=== PATIENT | male | born 1960 | race African-American/Black ===

== ENCOUNTER 2016-07-02 15:54 | Emergency (ER) | payer OTHER ==
--- NOTE | 2016-07-02 16:11 | PDOC ---
Rapid Medical Evaluation Time Seen by Provider: 07/02/16 16:10 Medical Evaluation: Allergies Allergy/AdvReac Type Severity Reaction Status Date / Time No Known Allergies Allergy Verified 06/30/16 13:23 07/02/16 16:10 I have performed a brief in-person evaluation of this patient. I am not entirely clear on this patient's chief complaint today. He was recently seen in the ER where work up revealed that patient has a hernia. He was asked to see dr Eid in the office on Thursday (today) at another office (not at [facility]) He instead come to the ER to discuss with the surgeon what will be done in the surgery Pt denies pain at this time, states the hernia enlarges and typically is easily reducible He is tolerating po, no vomiting Passing stool Passing flatus On examination: Speech difficulty to understand Right eye corneal changes Abd soft, non distended Unable to disrobe pt for testicular exam in triage I will not order a work up at this time Will defer to assessment by ER staff.... The patient will proceed to the ED for further evaluation. 07/02/16 16:12 07/02/16 16:18 07/02/16 17:02
[2016-07-02 16:19] VITALS: BP 152/69; PULSE 82; BMI 20.3
--- NOTE | 2016-07-02 16:39 | PDOC ---
History of Present Illness - General Chief Complaint: Pain, Acute Stated Complaint: PRE-OP Time Seen by Provider: 07/02/16 16:10 History Source: Patient Exam Limitations: No Limitations - History of Present Illness Initial Comments: 07/02/16 17:55 56-year-old male with history of right inguinal hernia, hypertension, smoking and EtOH abuse, presents to the ER requesting to discuss hernia surgery with a surgeon. Patient has recently been diagnosed with an easily reducible right inguinal hernia the communicates with the scrotum and was referred to surgery as an outpatient but misunderstood his instructions and has return to the ER. Patient denies pain, nausea, vomiting. Patient denies any exacerbation of his baseline symptoms. REVIEW OF SYSTEMS CONSTITUTIONAL: No fever, no chills, no fatigue EYES: Right eye blindness ENT: No ear pain, no sore throat CARDIOVASCULAR: No chest pain, no palpitations RESPIRATORY: No cough, no SOB GI: No abdominal pain, + right inguinal hernia no nausea, no vomiting, no constipation, no diarrhea GENITOURINARY: No dysuria, no frequency, no hematuria MUSKULOSKELETAL: No backpain, no joint pain, no myalgias SKIN: No rash NEURO: No headache EXAMINATION CONSTITUTIONAL: Awake and alert; in no apparent distress HEAD: Normocephalic; atraumatic EYES: Right cornea is opacified and I'm unable to visualize the pupil. Left cornea is clear, pupil is round and reactive to light; ENMT: External appears normal; normal oropharynx NECK: Supple; non-tender; no cervical lymphadenopathy CARD: Normal S1, S2; no murmurs, rubs, or gallops RESP: Normal chest excursion with respiration; breath sounds clear and equal bilaterally; no wheezes, rhonchi, or rales ABD: Soft, non-distended; non-tender; large right inguinal hernia the communicates with the scrotum, soft, reducible, with auscultated bowel sounds. There is no guarding or rebound; EXT: Normal ROM in all four extremities; non-tender to palpation; distal pulses intact SKIN: Warm, dry, no rash NEURO: No focal neurological deficiencies. Past History - Past Medical History Allergies/Adverse Reactions: Allergies Allergy/AdvReac Type Severity Reaction Status Date / Time No Known Allergies Allergy Verified 07/02/16 16:19 Home Medications: Ambulatory Orders Benztropine Mesylate [Cogentin -] 0.5 mg PO BID #60 tablet 04/07/16 Buspirone HCl [Buspar -] 10 mg PO BID #60 tablet 04/07/16 Thiothixene [Navane] 5 mg PO BID #60 capsule 04/07/16 Anemia: No Asthma: No Cancer: No Cardiac Disorders: No CVA: No COPD: No CHF: No Dementia: No Diabetes: No GI Disorders: No Disorders: No HTN: Yes (no meds) Hypercholesterolemia: No Kidney Stones: No Liver Disease: No Psychiatric Problems: Yes Suicide Attempt (Hx): Yes (20 years ago) Seizures: No Thyroid Disease: No - Surgical History Abdominal Surgery: No Appendectomy: No Cardiac Surgery: No Cholecystectomy: No Lung Surgery: No Neurologic Surgery: No Orthopedic Surgery: No - Reproductive History Testicular Surgery: No - Psycho/Social/Smoking Cessation Hx Anxiety: Yes Suicidal Ideation: No Smoking History: Current every day smoker Have you smoked in the past 12 months: Yes Number of Cigarettes Smoked Daily: 7 Information on smoking cessation initiated: No 'Breaking Loose' booklet given: 04/16/16 Hx Alcohol Use: No Drug/Substance Use Hx: No Substance Use Type: Alcohol, Marijuana Hx Substance Use Treatment: Yes (detox) Abd/GI Specific PMHX - Complaint Specific PMHX Hepatitis: No Pancreatitis: No *Physical Exam - Vital Signs Last Vital Signs Temp Pulse Resp BP Pulse Ox 82 16 152/69 98 07/02/16 16:10 07/02/16 16:10 07/02/16 16:10 07/02/16 16:10 Medical Decision Making - Medical Decision Making 07/02/16 17:58 Patient is a 56-year-old male with long-standing right inguinal hernia without evidence of incarceration or strangulation. Patient referred to the outpatient surgeon and advised to follow-up. Patient also advised of reasons to return to the ER immediately and has expressed understanding. *DC/Admit/Observation/Transfer Diagnosis at time of Disposition: Right groin hernia - Discharge Dispostion Disposition: HOME Condition at time of disposition: Stable - Referrals Referrals: Miguel Eid MD [Staff Physician] - - Patient Instructions Printed Discharge Instructions: DI for Groin Hernia Additional Instructions: you have a hernia that needs to be evaluated by surgery. call and make and appointment to be seen at the office. return immidiately to ED for severe pain , vomiting, fever
== END 2016-07-02 17:20 | disposition home or self-care (01) ==
LOC: JER 15:54
DX: Z04.8 Encounter for examination and observation for other specified reasons (principal); K40.90 Unilateral inguinal hernia, without obstruction or gangrene, not specified as recurrent; I10 Essential (primary) hypertension; F17.210 Nicotine dependence, cigarettes, uncomplicated; F10.10 Alcohol abuse, uncomplicated
CPT/HCPCS: 99282-25

== ENCOUNTER 2018-07-03 17:32 | Inpatient (IN) | payer OTHER ==
--- NOTE | 2018-07-03 18:06 | HP ---
CIWA Score Nausea/Vomitin Muscle Tremors: 2 Anxiety: 2 Agitation: 2 Paroxysmal Sweats: 1-Minimal Palms Moist Orientation: 0-Oriented Tacttile Disturbances: 1-Very Mild Itch/Numbness Auditory Disturbances: 1-Very Mild Visual Disturbances: 0-None Headache: 2-Mild CIWA-Ar Total Score: 13 - Admission Criteria OASAS Guidelines: Admission for Medically Managed Detox: Requires at least one of the followin. CIWA greater than 12 2. Seizures within the past 24 hours 3. Delirium tremens within the past 24 hours 4. Hallucinations within the past 24 hours 5. Acute intervention needed for co occurring medical disorder 6. Acute intervention needed for co occurring psychiatric disorder 7. Severe withdrawal that cannot be handled at a lower level of care (continued vomiting, continued diarrhea, abnormal vital signs) requiring intravenous medication and/or fluids 8. Patient presents the following: CIWA greater than 12 Admission Criteria Met: Admission criteria met Admission ROS [facility] - HPI Chief Complaint: i need help help to stop drinking alcohol and cocaine Allergies/Adverse Reactions: Allergies Allergy/AdvReac Type Severity Reaction Status Date / Time No Known Allergies Allergy Verified 07/03/18 18:15 History of Present Illness: this 58 years old male with alcohol and coaine dependence,seeking detox, withdrawal symptom, had previous admissions in detox,last admission in [facility] 03/1716 to 04/09/16 history of hypertension ,non compliance seen in [facility] last night history of schizophrenia syncope longest period of sobriety 10 years blindness of right eye post trauma in 1969 right inguinal hernia repair 2018 plan for rehab after detox Exam Limitations: No Limitations - Ebola screening Have you traveled outside of the country in the last 21 days: No - Review of Systems Constitutional: Loss of Appetite, Malaise, Night Sweats, Changes in sleep, Weakness EENT: reports: Nose Congestion, Other (blindness of right eye post trauma since 1969) Respiratory: reports: No Symptoms reported Cardiac: reports: No Symptoms Reported GI: reports: Poor Appetite, Vomiting, Abdominal cramping : reports: No Symptoms Reported Musculoskeletal: reports: Back Pain, Muscle Pain Integumentary: reports: Dryness Neuro: reports: Headache, Tremors Endocrine: reports: No Symptoms Reported Hematology: reports: No Symptoms Reported Psychiatric: reports: No Sypmtoms Reported, Judgement Intact, Mood/Affect Appropiate, Orientated x3, other (schizophrenia) Patient History - Patient Medical History Hx Anemia: No Hx Asthma: No Hx Chronic Obstructive Pulmonary Disease (COPD): No Hx Cancer: No Hx Cardiac Disorders: No Hx Congestive Heart Failure: No Hx Hypertension: Yes (no meds) Hx Hypercholesterolemia: No Hx Pacemaker: No HX Cerebrovascular Accident: No Hx Seizures: No Hx Dementia: No Hx Diabetes: No Hx Gastrointestinal Disorders: No Hx Liver Disease: No Hx Genitourinary Disorders: No Hx Sexually Transmitted Disorders: No Hx Renal Disease (ESRD): No Hx Thyroid Disease: No Hx Human Immunodeficiency Virus (HIV): No (last negative in 2008) Hx Hepatitis C: No Hx Depression: Yes Hx Suicide Attempt: Yes (20 years ago overdose) Hx Bipolar Disorder: No Hx Schizophrenia: Yes (on meds) Other Medical History: no suicidal,no homicidal - Patient Surgical History Past Surgical History: No Hx Neurologic Surgery: No Hx Cataract Extraction: No Hx Cardiac Surgery: No Hx Lung Surgery: No Hx Breast Surgery: No Hx Breast Biopsy: No Hx Abdominal Surgery: Yes (right inguinal hernia in 2018) Hx Appendectomy: No Hx Cholecystectomy: No Hx Genitourinary Surgery: No Hx Section: No Hx Orthopedic Surgery: No Anesthesia Reaction: No - PPD History Previous Implant?: Yes Documented Results: Negative w/o proof Implanted On Prior [facility] Admission?: Yes Date: 10/12/15 Results: 0 mm PPD to be Administered?: Yes - Smoking Cessation Smoking history: Current every day smoker Have you smoked in the past 12 months: Yes Aproximately how many cigarettes per day: 7 Hx Chewing Tobacco Use: No Initiated information on smoking cessation: Yes 'Breaking Loose' booklet given: 07/03/18 - Substance & Tx. History Hx Alcohol Use: Yes Hx Substance Use: Yes Substance Use Type: Alcohol, Cocaine Hx Substance Use Treatment: Yes ([facility] 04/05/16 to 03/21/16) - Substances Abused Alcohol Route: Oral Frequency: Daily Amount used: 4 BEERS . 1 PINT VODKA Age of first use: 54 Date of Last Use: 07/03/18 Cocaine Route: Smoking Frequency: Daily Amount used: 3 GRAMS Age of first use: 30 Date of Last Use: 07/03/18 Family Disease History - Family Disease History Family Disease History: CA: Father ( - stroke), Other: Father, Mother ( 'bone disease") Admission Physical Exam [facility] - Vital Signs Vital Signs: Vital Signs Temperature 98.6 F 07/03/18 17:59 Pulse Rate 74 07/03/18 17:59 Respiratory Rate 18 07/03/18 17:59 Blood Pressure 162/113 H 07/03/18 17:59 O2 Sat by Pulse Oximetry (%) - Physical General Appearance: Yes: Moderate Distress, Tremorous, Irritable, Sweating, Anxious HEENTM: Yes: Other (blindness of right eye post trauma since 1969) Respiratory: Yes: Lungs Clear, Normal Breath Sounds, No Respiratory Distress Neck: Yes: Within Normal Limits, Supple, Trachea in good position Breast: Yes: Within Normal Limits Cardiology: Yes: Within Normal Limits, Regular Rhythm, Regular Rate, S1, S2 Abdominal: Yes: Within Normal Limits, Normal Bowel Sounds, Non Tender, Flat, Soft, Surgical Scar Genitourinary: Yes: Within Normal Limits Musculoskeletal: Yes: Back pain, Muscle Pain Extremities: Yes: Tremors Neurological: Yes: deputy head II-XII NML intact, Fully Oriented, Alert, Motor Strength 5/5 Integumentary: Yes: Dry Lymphatic: Yes: Within Normal Limits - Diagnostic (1) Alcohol dependence with uncomplicated withdrawal Current Visit: No Status: Acute (2) Nicotine dependence Current Visit: No Status: Acute Qualifiers: Nicotine product type: cigarettes Substance use status: uncomplicated Qualified Code(s): F17.210 - Nicotine dependence, cigarettes, uncomplicated (3) Schizophrenia Current Visit: No Status: Suspected (4) Cocaine abuse Current Visit: Yes Status: Acute (5) Syncope Current Visit: Yes Status: Acute (6) Blindness of right eye Current Visit: Yes Status: Acute (7) History of right inguinal hernia repair Current Visit: Yes Status: Acute (8) History of drug overdose Current Visit: Yes Status: Acute Cleared for Admission [facility] - Detox or Rehab [facility] Level of Care: Medically Managed Detox Regimen/Protocol: Librium S Breath Alcohol Content Breath Alcohol Content: 0 Inpatient Rehab Admission - Rehab Decision to Admit Inpatient rehab admission?: No
[2018-07-03 18:13] VITALS: BMI 21.7
[2018-07-03] MEDS ORDERED: MAGNESIUM CITRATE 300 ML BOTTLE PO PRN (18:30)
[2018-07-03] MEDS ORDERED: IBUPROFEN 400 MG TABLET (FP) PO PRN (18:30)
[2018-07-03] MEDS ORDERED: BISMUTH SUBSALICYLATE 524 MG/30 ML UD PO PRN (18:30)
[2018-07-03] MEDS ORDERED: chlordiazePOXIDE HCL 25 MG CAPSULE PO PRN (18:30)
[2018-07-03] MEDS ORDERED: hydrOXYzine PAMOATE 25 MG CAPSULE (FP) PO PRN (18:30)
[2018-07-03] MEDS ORDERED: MENTHOL/PHENOL 1 EACH UD MM PRN (18:30)
[2018-07-03] MEDS ORDERED: METHOCARBAMOL 500 MG TABLET PO PRN (18:30)
[2018-07-03] MEDS ORDERED: MAG HYDROX/AL HYDROX/SIMETH 30 ML UNIT-DOSE CUP PO PRN (18:30)
[2018-07-03] MEDS ORDERED: MELATONIN 5 MG TABLETS PO PRN (18:30)
[2018-07-03] MEDS ORDERED: ACETAMINOPHEN 325 MG TABLET (FP) PO PRN ×2 (18:30)
[2018-07-03] MEDS ORDERED: MAGNESIUM HYDROX 2400MG/30ML ORAL SUSPENSION 30 ML CUP PO PRN (18:30)
[2018-07-03] MEDS ORDERED: cloNIDine HCL 0.1 MG TABLET PO ONE (19:00)
[2018-07-03] MEDS: amLODIPine BESYLATE 10 MG TABLET (FP) PO SCH (21:31)
[2018-07-03] MEDS: HYDROCHLOROTHIAZIDE 25 MG TABLET (FP) PO SCH (21:31)
[2018-07-03] MEDS: chlordiazePOXIDE HCL 25 MG CAPSULE PO SCH (22:34)
[2018-07-03] MEDS: THIAMINE HCL 100 MG TABLET (FP) PO SCH (22:55)
[2018-07-04] MEDS: chlordiazePOXIDE HCL 25 MG CAPSULE PO SCH ×4 (06:28→22:18)
[2018-07-04] MEDS: PRENATAL VITAMINS W/ FOLIC ACID TABLET (FP) PO SCH (10:22)
[2018-07-04] MEDS: HYDROCHLOROTHIAZIDE 25 MG TABLET (FP) PO SCH (10:23)
[2018-07-04] MEDS: amLODIPine BESYLATE 10 MG TABLET (FP) PO SCH (10:23)
[2018-07-04 11:10] LABS: ALBUMIN 3.5 g/dl (3.4-5.0); ALK PHOS 79 U/L (45-117); ANION GAP 4 MMOL/L (8-16); BILIRUBIN,TOTAL 0.4 mg/dL (0.2-1); BLOOD UREA NITROGEN 17 mg/dL (7-18); CALCIUM 8.2 mg/dL (8.5-10.1); CHLORIDE 104 mmol/L (98-107); CO2 31 mmol/L (21-32); CREATININE 1.2 mg/dL (0.55-1.3); GLUCOSE,RANDOM 116 mg/dL (74-106); SGOT/AST 25 U/L (15-37); SGPT/ALT 30 U/L (13-61); SODIUM 139 mmol/L (136-145); TOT PROT 6.3 g/dl (6.4-8.2)
[2018-07-04 11:16] LABS: HEMATOCRIT 36.3 % (35.4-49); HEMOGLOBIN 11.9 GM/dL (11.7-16.9); MCH 25.5 pg (25.7-33.7); MCHC 32.7 g/dl (32.0-35.9); MEAN PLT VOLUME 7.6 fl (7.5-11.1); PLATELET COUNT 205 K/MM3 (134-434); RBC 4.66 M/mm3 (4.00-5.60); RDW 14.7 % (11.9-15.9); WHITE BLOOD COUNT 2.9 K/mm3 (4.0-10.0)
--- NOTE | 2018-07-04 14:15 | PN ---
S CIWA - CIWA Score Nausea/Vomitin Muscle Tremors: 2 Anxiety: 2 Agitation: 1-Slight > Activity Paroxysmal Sweats: 2 Orientation: 0-Oriented Tacttile Disturbances: 1-Very Mild Itch/Numbness Auditory Disturbances: 0-None Visual Disturbances: 0-None Headache: 1-Very Mild CIWA-Ar Total Score: 12 S Progress Note (SOAP) Subjective: interrupted sleep, anxiety, chills sweats Objective: 07/04/18 14:13 Vital Signs Temperature 97.5 F L 07/04/18 13:47 Pulse Rate 88 07/04/18 13:47 Respiratory Rate 16 07/04/18 13:47 Blood Pressure 125/78 07/04/18 13:47 O2 Sat by Pulse Oximetry (%) Laboratory Last Values WBC 2.9 K/mm3 (4.0-10.0) L 07/04/18 07:35 RBC 4.66 M/mm3 (4.00-5.60) 07/04/18 07:35 Hgb 11.9 GM/dL (11.7-16.9) 07/04/18 07:35 Hct 36.3 % (35.4-49) 07/04/18 07:35 MCV 78.0 fl (80-96) L 07/04/18 07:35 MCH 25.5 pg (25.7-33.7) L 07/04/18 07:35 MCHC 32.7 g/dl (32.0-35.9) 07/04/18 07:35 RDW 14.7 % (11.9-15.9) D 07/04/18 07:35 Plt Count 205 K/MM3 (134-434) D 07/04/18 07:35 MPV 7.6 fl (7.5-11.1) 07/04/18 07:35 Sodium 139 mmol/L (136-145) 07/04/18 07:35 Potassium 4.0 mmol/L (3.5-5.1) 07/04/18 07:35 Chloride 104 mmol/L (98-107) 07/04/18 07:35 Carbon Dioxide 31 mmol/L (21-32) 07/04/18 07:35 Anion Gap 4 MMOL/L (8-16) L 07/04/18 07:35 BUN 17 mg/dL (7-18) 07/04/18 07:35 Creatinine 1.2 mg/dL (0.55-1.3) 07/04/18 07:35 Creat Clearance w eGFR 62.19 (>60) 07/04/18 07:35 Random Glucose 116 mg/dL (74-106) H 07/04/18 07:35 Calcium 8.2 mg/dL (8.5-10.1) L 07/04/18 07:35 Total Bilirubin 0.4 mg/dL (0.2-1) 07/04/18 07:35 AST 25 U/L (15-37) 07/04/18 07:35 ALT 30 U/L (13-61) 07/04/18 07:35 Alkaline Phosphatase 79 U/L (45-117) 07/04/18 07:35 Total Protein 6.3 g/dl (6.4-8.2) L 07/04/18 07:35 Albumin 3.5 g/dl (3.4-5.0) 07/04/18 07:35 RPR Titer Nonreactive (NONREACTIVE) 07/04/18 07:35 labs noted Assessment: 07/04/18 14:13 aox3 x no distress slurred speech ( patinet reports is normal present for 20+ years from "old" psych meds) full ROM ambulating in the unit Plan: withdrawal sx increase po fluids continue to monitor
[2018-07-04] MEDS: THIAMINE HCL 100 MG TABLET (FP) PO SCH (22:18)
[2018-07-05] MEDS: chlordiazePOXIDE HCL 25 MG CAPSULE PO SCH ×3 (05:33→18:23)
--- NOTE | 2018-07-05 09:32 | CONSULT ---
[facility] Psychiatric Consult - Data Date of interview: 07/05/18 Admission source: [facility] Identifying data: Mr العلي is a 58 years old single Black male, unemployed receiving SSI/SSD, domiciled seeking detox treatment for alcohol and cocaine. Substance Abuse History: Reports history of alcohol and cocaine use. He started drinking alcohol at age 54, consumes one pint of vodka & 4 cans of beer daily. Last drank on 07/03/18. He started smking crack cocaine at age 30, consumes 3 grams daily. Last smoked on 07/03/18. Refer to medical reception specialist's summary for further information Medical History: Significant for hypertension, arthritis right leg, blindness right eye and history of surgery for right inguinal hernia repair. Smokes 7 cigartees daily Psychiatric History: Patient reports that his first psychiatric contact was 30 years ago when he was admitted to [facility] for auditory hallucinations, depression and suicidal attempt by overdose on pills. He was diagnosed with Schizophrenia/depression and started on psychotropic medications. Repors that from [facility], he was transferred to [facility] for skilled nursing care. Reports multiple subsequent psychiatric admissions to various institutions including to [facility], [facility], [facility] in [place], [place] and most recently in April 2018 to [facility]. He was discharged on Zyprexa 15 mg po HS, Cogentin 1 mg po BID and Buspar 5 mg po BID(verified by external medication search with scripts filled on 05/17/18). Prior to that recent admission, he saw Dr Sebas Kauffman, a private psychiatrist on [address] in the [place] and he was prescribed Navane 10 mg po BID, Cogentin 2 mg po daily and Buspar 15 mg po BID(verified by external medication search with scripts filled on 04/24/18). Admits that he did not follow up after discharge from [facility] and ran out of medication. Report two previous suicidal attempts(overdose 30 years ago and hanging 2 years after). At present, denies experiencing psychotic , manic or depressive symptoms, S/H ideations Physical/Sexual Abuse/Trauma History: Denies history of emotional, physical or sexual abuse as well as DV relationship. No service Additional Comment: Reports history of multiple arrests including 2 felony convictions. Denies being on parole/probation at present Mental Status Exam - Mental Status Exam Alert and Oriented to: Time, Place Cognitive Function: Fair Patient Appearance: Disheveled Mood: Hopeful, Euthymic Patient Behavior: Cooperative Speech Pattern: Clear Voice Loudness: Normal Thought Process: Intact, Goal Oriented Thought Disorder: Not Present Hallucinations: Denies Suicidal Ideation: Denies Insight/Judgement: Fair Sleep: Poorly Appetite: Good Muscle strength/Tone: Normal Gait/Station: Normal Psychiatric Findings - Problem List ([place] 1, 2,3) (1) Schizophrenia Current Visit: No Status: Chronic (2) Schizoaffective disorder Current Visit: Yes Status: Ruled-out (3) Alcohol dependence with uncomplicated withdrawal Current Visit: No Status: Acute (4) Cocaine dependence Current Visit: Yes Status: Acute (5) Nicotine dependence Current Visit: No Status: Acute Qualifiers: Nicotine product type: cigarettes Substance use status: uncomplicated Qualified Code(s): F17.210 - Nicotine dependence, cigarettes, uncomplicated (6) Blindness of right eye Current Visit: Yes Status: Chronic (7) History of right inguinal hernia repair Current Visit: Yes Status: Resolved (8) HTN (hypertension) Current Visit: Yes Status: Chronic (9) Arthritis of right leg Current Visit: Yes Status: Chronic - Initial Treatment Plan Initial Treatment Plan: 1) Resume Zyprexa 15 mg po HS and Buspar 5 mg po BID. 2 ) Start Cogentin 0.5 mg po BID. 3) Continue inpatient detoxification
[2018-07-05] MEDS: PRENATAL VITAMINS W/ FOLIC ACID TABLET (FP) PO SCH (11:11)
[2018-07-05] MEDS: BENZTROPINE MESYLATE 1 MG TABLET (FP) PO SCH ×2 (11:12→21:34)
--- NOTE | 2018-07-05 11:22 | PN ---
[facility] CIWA - CIWA Score Nausea/Vomitin-No Nausea/No Vomiting Muscle Tremors: 3 Anxiety: 2 Agitation: 3 Paroxysmal Sweats: 3 Orientation: 0-Oriented Tacttile Disturbances: 0-None Auditory Disturbances: 0-None Visual Disturbances: 0-None Headache: 0-None Present CIWA-Ar Total Score: 11 S Progress Note (SOAP) Subjective: sweats interrupted sleep body aches chills Objective: 07/05/18 11:22 Vital Signs Temperature 96.3 F L 07/05/18 09:27 Pulse Rate 70 07/05/18 09:27 Respiratory Rate 16 07/05/18 09:27 Blood Pressure 142/96 07/05/18 09:27 O2 Sat by Pulse Oximetry (%) Laboratory Tests 07/04/18 07/04/18 07/04/18 07:35 07:35 07:35 WBC 2.9 L RBC 4.66 Hgb 11.9 Hct 36.3 MCV 78.0 L MCH 25.5 L MCHC 32.7 RDW 14.7 D Plt Count 205 D MPV 7.6 Sodium 139 Potassium 4.0 Chloride 104 Carbon Dioxide 31 Anion Gap 4 L BUN 17 Creatinine 1.2 Creat Clearance w eGFR 62.19 Random Glucose 116 H Calcium 8.2 L Total Bilirubin 0.4 AST 25 ALT 30 Alkaline Phosphatase 79 Total Protein 6.3 L Albumin 3.5 RPR Titer Nonreactive aaox3 ambulating no acute distress Assessment: 07/05/18 11:22 withdrawal sx Plan: continue detox increase fluids
[2018-07-05] MEDS: busPIRone HCL 5 MG TABLET PO SCH ×2 (11:30→21:33)
[2018-07-05] MEDS: amLODIPine BESYLATE 10 MG TABLET (FP) PO SCH (11:30)
[2018-07-05] MEDS: HYDROCHLOROTHIAZIDE 25 MG TABLET (FP) PO SCH (11:30)
[2018-07-05] MEDS: OLANZapine 7.5 MG TABLET PO SCH (21:33)
[2018-07-05] MEDS: THIAMINE HCL 100 MG TABLET (FP) PO SCH (21:35)
[2018-07-05] MEDS: chlordiazePOXIDE HCL 10 MG CAPSULE PO SCH (22:39)
[2018-07-05] MEDS ORDERED: chlordiazePOXIDE HCL 10 MG CAPSULE PO PRN (23:00)
[2018-07-06] MEDS: chlordiazePOXIDE HCL 10 MG CAPSULE PO SCH ×3 (06:04→17:49)
[2018-07-06] MEDS: BENZTROPINE MESYLATE 1 MG TABLET (FP) PO SCH ×2 (10:26→22:27)
[2018-07-06] MEDS: busPIRone HCL 5 MG TABLET PO SCH ×2 (10:26→22:28)
[2018-07-06] MEDS: PRENATAL VITAMINS W/ FOLIC ACID TABLET (FP) PO SCH (10:26)
[2018-07-06] MEDS: amLODIPine BESYLATE 10 MG TABLET (FP) PO SCH (10:27)
[2018-07-06] MEDS: HYDROCHLOROTHIAZIDE 25 MG TABLET (FP) PO SCH (10:27)
--- NOTE | 2018-07-06 11:59 | PN ---
[facility] Progress Note (SOAP) Subjective: mild sweats tired Objective: 07/06/18 11:57 Vital Signs Temperature 97.3 F L 07/06/18 09:40 Pulse Rate 87 07/06/18 09:40 Respiratory Rate 18 07/06/18 09:40 Blood Pressure 99/70 07/06/18 09:40 O2 Sat by Pulse Oximetry (%) aaox3 ambulating no acute distress continue to monitor BP Assessment: 07/06/18 11:58 mild withdrawal sx Plan: continue detox increase fluids monitor BP
[2018-07-06] MEDS: OLANZapine 7.5 MG TABLET PO SCH (22:27)
[2018-07-06] MEDS: THIAMINE HCL 100 MG TABLET (FP) PO SCH (22:27)
[2018-07-06] MEDS ORDERED: chlordiazePOXIDE HCL 10 MG CAPSULE PO SCH (23:00)
--- NOTE | 2018-07-07 09:43 | DS ---
[facility] Detox Discharge Summary Admission Date: 07/03/18 Discharge Date: 07/07/18 - History Present History: Alcohol Dependence, Cocaine Dependence, Pcp Dependence - Physical Exam Results Vital Signs: Vital Signs Temperature 96.8 F L 07/07/18 09:03 Pulse Rate 85 07/07/18 09:03 Respiratory Rate 20 07/07/18 09:03 Blood Pressure 141/112 H 07/07/18 09:03 O2 Sat by Pulse Oximetry (%) - Treatment Hospital Course: Detox Protocol Followed, Detoxed Safely, Responded well, Discharged Condition Good, Rehab Referral Accepted - Medication Discharge Medications: Ambulatory Orders Benztropine Mesylate [Cogentin -] 0.5 mg PO BID #60 tablet 04/07/16 Buspirone HCl [Buspar -] 10 mg PO BID #60 tablet 04/07/16 Thiothixene [Navane] 5 mg PO BID #60 capsule 04/07/16 - Diagnosis (1) Cocaine abuse Current Visit: Yes Status: Chronic (2) Cocaine dependence Current Visit: Yes Status: Chronic Qualifiers: Substance use status: uncomplicated Qualified Code(s): F14.20 - Cocaine dependence, uncomplicated (3) History of drug overdose Current Visit: Yes Status: Acute (4) Syncope Current Visit: Yes Status: Acute (5) Arthritis of right leg Current Visit: Yes Status: Chronic (6) Blindness of right eye Current Visit: Yes Status: Chronic (7) HTN (hypertension) Current Visit: Yes Status: Chronic Qualifiers: Hypertension type: essential hypertension Qualified Code(s): I10 - Essential (primary) hypertension (8) History of right inguinal hernia repair Current Visit: Yes Status: Resolved (9) Schizoaffective disorder Current Visit: Yes Status: Ruled-out (10) Alcohol dependence with uncomplicated withdrawal Current Visit: Yes Status: Chronic (11) Hernia Current Visit: No Status: Acute (12) Nicotine dependence Current Visit: No Status: Acute Qualifiers: Nicotine product type: cigarettes Substance use status: uncomplicated Qualified Code(s): F17.210 - Nicotine dependence, cigarettes, uncomplicated (13) Right groin hernia Current Visit: No Status: Acute (14) PCP dependence Current Visit: Yes Status: Chronic (15) Schizophrenia Current Visit: No Status: Chronic - AMA Did Patient Leave Against Medical Advice: No (referred to inpatient rehab)
[2018-07-07 09:59] VITALS: BP 137/74; PULSE 86; TEMP 98.1
== END 2018-07-07 09:52 | disposition home or self-care (01) | DRG 897 ==
LOC: YASAS 17:32 → Y6N 18:44
PROVIDERS: ADMIT Surgery; ATTEND Surgery
PROC: HZ2ZZZZ Detoxification Services for Substance Abuse Treatment (ICD-10-PCS; principal; 2018-07-03)
DX: F10.230 Alcohol dependence with withdrawal, uncomplicated (principal); F14.20 Cocaine dependence, uncomplicated; F16.20 Hallucinogen dependence, uncomplicated; F17.213 Nicotine dependence, cigarettes, with withdrawal; F20.9 Schizophrenia, unspecified; I10 Essential (primary) hypertension; H54.40 Blindness, one eye, unspecified eye; R55 Syncope and collapse; M13.88 Other specified arthritis, other site; Z98.890 Other specified postprocedural states; Z91.5 Personal history of self-harm
CPT/HCPCS: 36415; 80053; 85027; 86593; J0735

== ENCOUNTER 2019-06-25 22:37 | Inpatient (IN) | payer OTHER ==
--- NOTE | 2019-06-25 23:32 | HP ---
CIWA Score Nausea/Vomitin-No Nausea/No Vomiting Muscle Tremors: 1-None Visible, but [place] Anxiety: 4-Mod. Anxious/Guarded Agitation: 4-Moderately Restless Paroxysmal Sweats: No Perspiration Orientation: 0-Oriented Tacttile Disturbances: 0-None Auditory Disturbances: 0-None Visual Disturbances: 2-Mild Sensitivity (light) Headache: 0-None Present CIWA-Ar Total Score: 11 - Admission Criteria OASAS Guidelines: Admission for Medically Managed Detox: Requires at least one of the followin. CIWA greater than 12 2. Seizures within the past 24 hours 3. Delirium tremens within the past 24 hours 4. Hallucinations within the past 24 hours 5. Acute intervention needed for co occurring medical disorder 6. Acute intervention needed for co occurring psychiatric disorder 7. Severe withdrawal that cannot be handled at a lower level of care (continued vomiting, continued diarrhea, abnormal vital signs) requiring intravenous medication and/or fluids 8. Patient presents the following: Acute intervention needed for co-occurring med or psych disorder (b/p 146/96) Admission Criteria Met: Admission criteria met Admitting History and Physical - Smoking History Smoking history: Current every day smoker Have you smoked in the past 12 months: Yes Aproximately how many cigarettes per day: 7 - Alcohol/Substance Use Hx Alcohol Use: Yes Admission ROS S - HPI Chief Complaint: C/O WORSENING WITHDRAWAL SX'S Allergies/Adverse Reactions: Allergies Allergy/AdvReac Type Severity Reaction Status Date / Time No Known Allergies Allergy Verified 07/29/18 16:19 History of Present Illness: 59 Y.O. MALE WITH ALCOHOLISM HERE FOR DETOX. CLIENT PRESENTS WITH C/O WORSENING WITHDRAWAL SX'S. SELF REFERRED. KNOWN TO PROGRAM LAST HERE 1 YEAR AGO. HE REPORTS DAILY ALCOHOL INTAKE. LAST DRANK TODAY. DENIES BLACKOUTS, SZ D/O, SI/HI/AVH. HE ALSO REPORTS COCAINE ABUSE. DENIES IVDU. DENIES ANY SIGNIFICANT PERIOD OF CLEAN TIME IN THE PAST 2 WEEKS. HOMELESS, UNEMPLOYED, DENIES LEGALS Exam Limitations: Physical Impairment (BLIND IN THE RIGHT EYE) - Ebola screening Have you traveled outside of the country in the last 21 days: No Have you had contact with anyone from an Ebola affected area: No Have you been sick,other than usual withdrawal symptoms: No Do you have a fever: No - Review of Systems Constitutional: Chills, Night Sweats, Changes in sleep EENT: reports: Blurred Vision (R EYE BLINDNESS), Dental Problems (MISSING TEETH) Respiratory: reports: No Symptoms reported Cardiac: reports: No Symptoms Reported GI: reports: Poor Fluid Intake : reports: No Symptoms Reported Musculoskeletal: reports: No Symptoms Reported Integumentary: reports: No Symptoms Reported Neuro: reports: Tremors Endocrine: reports: No Symptoms Reported Hematology: reports: No Symptoms Reported Psychiatric: reports: Orientated x3, Anxious, Depressed Other Systems: Reviewed and Negative Patient History - Patient Medical History Hx Anemia: No Hx Asthma: No Hx Chronic Obstructive Pulmonary Disease (COPD): No Hx Cancer: No Hx Cardiac Disorders: No Hx Congestive Heart Failure: No Hx Hypertension: Yes (NOT COMPLAINT) Hx Hypercholesterolemia: No Hx Pacemaker: No HX Cerebrovascular Accident: No Hx Seizures: No Hx Dementia: No Hx Diabetes: No Hx Gastrointestinal Disorders: No Hx Liver Disease: No Hx Genitourinary Disorders: No Hx Sexually Transmitted Disorders: No Hx Renal Disease (ESRD): No Hx Thyroid Disease: No Hx Human Immunodeficiency Virus (HIV): No (last negative in 2008) Hx Hepatitis C: No Hx Depression: Yes Hx Suicide Attempt: Yes (20 years ago overdose) Hx Bipolar Disorder: No Hx Schizophrenia: Yes (on meds) - Patient Surgical History Past Surgical History: Yes Hx Neurologic Surgery: No Hx Cataract Extraction: No Hx Cardiac Surgery: No Hx Lung Surgery: No Hx Breast Surgery: No Hx Breast Biopsy: No Hx Abdominal Surgery: Yes (right inguinal hernia in 2018) Hx Appendectomy: No Hx Cholecystectomy: No Hx Genitourinary Surgery: No Hx Section: No Hx Orthopedic Surgery: No Anesthesia Reaction: No - PPD History Previous Implant?: Yes Documented Results: Negative w/proof Implanted On Prior [facility] Admission?: Yes Date: 07/05/18 Results: 0 mm PPD to be Administered?: No - Smoking Cessation Smoking history: Current every day smoker Have you smoked in the past 12 months: Yes Aproximately how many cigarettes per day: 10 Hx Chewing Tobacco Use: No Initiated information on smoking cessation: Yes 'Breaking Loose' booklet given: 06/25/19 - Substance & Tx. History Hx Alcohol Use: Yes Hx Substance Use: Yes Substance Use Type: Alcohol, Cocaine Hx Substance Use Treatment: Yes ([facility]) - Substances abused Alcohol Other (specify): BEER/LIQUOR Substance route: Oral Frequency: Daily Amount used: 3- 12 BEER/ 4 NIPS Age of first use: 18 Date of last use: 06/25/19 Cocaine Substance route: Smoking (AND SNIFFING) Frequency: Daily Amount used: $50 Age of first use: 25 Date of last use: 06/23/19 Admission Physical Exam [facility] - Physical General Appearance: Yes: Mild Distress, Tremorous (FELT), Anxious, Other (THIN) HEENTM: Yes: EOMI (LEFT EYE), Normocephalic, Normal Voice, ROWAN (LEFT EYE), Pharynx Normal, Other (R EYE BLINDNESS 2/2 TRAUMA POOR DENTITION MISSING TEETH) Respiratory: Yes: Chest Non-Tender, Lungs Clear, Normal Breath Sounds, No Respiratory Distress, No Accessory Muscle Use Neck: Yes: No masses,lesions,Nodules, Supple, Trachea in good position Breast: Yes: Breasts Symetrical Cardiology: Yes: Regular Rhythm, Regular Rate, S1, S2 Abdominal: Yes: Non Tender, Soft, Increased Bowel Sounds Genitourinary: Yes: Within Normal Limits Back: Yes: Normal Inspection Musculoskeletal: Yes: full range of Motion, Gait Steady Extremities: Yes: Normal Capillary Refill, Normal Range of Motion, Non-Tender, Tremors Neurological: Yes: Fully Oriented, Alert, Motor Strength 5/5 Integumentary: Yes: Dry, Warm Lymphatic: Yes: Within Normal Limits - Diagnostic (1) At risk for dehydration due to poor fluid intake Current Visit: Yes Status: Acute (2) Skin turgor poor Current Visit: Yes Status: Acute (3) Risk for falls Current Visit: Yes Status: Acute (4) Alcohol dependence with uncomplicated withdrawal Current Visit: Yes Status: Acute (5) Blindness of right eye Current Visit: Yes Status: Chronic (6) Cocaine dependence Current Visit: Yes Status: Acute Qualifiers: Substance use status: uncomplicated Qualified Code(s): F14.20 - Cocaine dependence, uncomplicated (7) HTN (hypertension) Current Visit: Yes Status: Chronic Qualifiers: Hypertension type: essential hypertension Qualified Code(s): I10 - Essential (primary) hypertension (8) Nicotine dependence Current Visit: Yes Status: Chronic Qualifiers: Nicotine product type: cigarettes Cleared for Admission [facility] - Detox or Rehab [facility] Level of Care: Medically Managed Detox Regimen/Protocol: Librium Claeared for Rehab Admission: No Breathalyzer - Breathalyzer Breathalyzer: 0.014 Urine Drug Screen - Test Device Lot number: [id number] Expiration date: 03/19/21 - Control Is test valid?: Yes - Results Drug screen NEGATIVE: No Urine drug screen results: TATYANA-Cocaine Inpatient Rehab Admission - Rehab Decision to Admit Inpatient rehab admission?: No
[2019-06-25] MEDS ORDERED: ONDANSETRON *ODT* 4 MG TABLET SL ONE (23:42)
[2019-06-25] MEDS ORDERED: DICYCLOMINE HCL 10 MG CAPSULE PO PRN (23:42)
[2019-06-25] MEDS ORDERED: NICOTINE POLACRILEX 2 MG GUM BUC PRN (23:42)
[2019-06-25] MEDS ORDERED: METHOCARBAMOL 500 MG TABLET PO PRN (23:42)
[2019-06-25] MEDS ORDERED: guaiFENesin 200 MG/10 ML 10 ML UNIT-DOSE CUPS PO PRN (23:42)
[2019-06-25] MEDS ORDERED: MAGNESIUM HYDROX 2400MG/30ML ORAL SUSPENSION 30 ML CUP PO PRN (23:42)
[2019-06-25] MEDS ORDERED: MENTHOL/PHENOL 1 EACH UD MM PRN (23:42)
[2019-06-25] MEDS ORDERED: MAGNESIUM CITRATE 300 ML BOTTLE PO PRN (23:42)
[2019-06-25] MEDS ORDERED: IBUPROFEN 400 MG TABLET (FP) PO PRN (23:42)
[2019-06-25] MEDS ORDERED: BISMUTH SUBSALICYLATE 524 MG/30 ML UD PO PRN (23:42)
[2019-06-25] MEDS ORDERED: ACETAMINOPHEN 325 MG TABLET (FP) PO PRN ×2 (23:42)
[2019-06-25] MEDS ORDERED: P-EPHED 60MG/TRIPROLIDI 2.5MG TABLET PO PRN (23:42)
[2019-06-25] MEDS ORDERED: MAG HYDROX/AL HYDROX/SIMETH 30 ML UNIT-DOSE CUP PO PRN (23:42)
[2019-06-25 23:49] VITALS: BMI 18.1
[2019-06-26] MEDS: chlordiazePOXIDE HCL 10 MG CAPSULE PO PRN (00:36)
[2019-06-26] MEDS: chlordiazePOXIDE HCL 25 MG CAPSULE PO SCH ×4 (00:48→23:03)
[2019-06-26] MEDS ORDERED: amLODIPine BESYLATE 10 MG TABLET (FP) PO ONE (05:51)
--- NOTE | 2019-06-26 09:53 | EKG ---
Test Reason : Blood Pressure : / mmHG Vent. Rate : 069 BPM Atrial Rate : 069 BPM P-R Int : 170 ms QRS Dur : 098 ms QT Int : 404 ms P-R-T Axes : 072 058 069 degrees QTc Int : 432 ms SINUS RHYTHM WITH PREMATURE ATRIAL COMPLEXES MINIMAL VOLTAGE CRITERIA FOR LVH, MAY BE NORMAL VARIANT SEPTAL INFARCT , AGE UNDETERMINED ABNORMAL ECG Confirmed by Adebayo Swanson MD ([id number]) on 06/26/2019 9:53:33 AM Referred By: Gustabo Meehan Confirmed By:Adebayo Swanson MD
[2019-06-26] MEDS: HYDROCHLOROTHIAZIDE 25 MG TABLET (FP) PO SCH (10:41)
[2019-06-26] MEDS: NICOTINE 14 MG/24 HOURS TOPICAL PATCH TD SCH (10:41)
[2019-06-26] MEDS: PRENATAL VITAMINS W/ FOLIC ACID TABLET (FP) PO SCH (10:41)
[2019-06-26 11:30] LABS: HEMATOCRIT 35.8 % (35.4-49); HEMOGLOBIN 11.5 GM/dL (11.7-16.9); MCH 24.9 pg (25.7-33.7); MCHC 32.3 g/dl (32.0-35.9); MEAN CELL VOLUME 77.3 fl (80-96); MEAN PLT VOLUME 7.7 fl (7.5-11.1); PLATELET COUNT 209 K/MM3 (134-434); RBC 4.63 M/mm3 (4.00-5.60); RDW 14.9 % (11.9-15.9); WHITE BLOOD COUNT 3.8 K/mm3 (4.0-10.0)
[2019-06-26 11:47] LABS: ALBUMIN 3.6 g/dl (3.4-5.0); BILIRUBIN,TOTAL 1.8 mg/dL (0.2-1); BLOOD UREA NITROGEN 13.4 mg/dL (7-18); CALCIUM 8.8 mg/dL (8.5-10.1); POTASSIUM 3.7 mmol/L (3.5-5.1); TOT PROT 6.4 g/dl (6.4-8.2)
--- NOTE | 2019-06-26 13:03 | CONSULT ---
[facility] Psychiatric Consult - Data Date of interview: 06/26/19 Admission source: Self-referred Identifying data: Mr العلي is a 59 years old single Black male, unemployed receiving SSI/SSD, homeless seeking detox treatment for alcohol and cocaine. Substance Abuse History: Reports history of alcohol and cocaine use. Refer to unattended ground sensor specialist's summary for further information Medical History: Significant for hypertension, arthritis right leg, blindness right eye and history of surgery for right inguinal hernia repair. Smokes 7 cigartees daily Psychiatric History: Patient is known for 3 previous admission to this facilirty. He reports that his first psychiatric contact was more than 30 years ago when he was admitted to [facility] for auditory hallucinations, depression and suicidal attempt by overdose on pills. He was diagnosed with Schizophrenia/depression and started on psychotropic medications. Repors that from [facility], he was transferred to [facility] for retirement care. Reports multiple subsequent psychiatric admissions to various institutions including to [facility], [facility], [facility] in [place], [place] and most recently in April 2018 to [facility]. He was discharged on Zyprexa 15 mg po HS, Cogentin 1 mg po BID and Buspar 5 mg po BID. During most recent admission to this facility, e saw sql report writer on 07/05/18 and he was prescribed Zyprexa 15 mg/hs, Buspar 5 mg/bid and Cogentin o.5 mg/bid. Denies receiving outpatient psychiatric treatment currently but gets medications refill via ED. He said that he was taking Navane 10 g/bid which he ran out 2 weeks ago. Reportedly he has had two previous suicidal attempts(overdose 30 years ago and hanging 2 years after). At present, denies experiencing psychotic, manic or depressive symptoms, S/H ideations. However, reports sleeping poorly Physical/Sexual Abuse/Trauma History: Denies history of emotional, physical or sexual abuse as well as DV relationship. No service Additional Comment: Reports history of multiple arrests including 2 felony convictions. Denies being on parole/probation at present Mental Status Exam - Mental Status Exam Alert and Oriented to: Time, Person Cognitive Function: Fair Patient Appearance: Disheveled Mood: Hopeful, Euthymic Patient Behavior: Cooperative Speech Pattern: Clear Voice Loudness: Normal Thought Process: Intact, Goal Oriented Hallucinations: Denies Suicidal Ideation: Denies Homicidal Ideation: Denies Insight/Judgement: Poor Sleep: Poorly Appetite: Good Muscle strength/Tone: Normal Gait/Station: Normal Psychiatric Findings - Problem List ([facility] 1, 2,3) (1) Schizophrenia Current Visit: No Status: Chronic (2) Schizoaffective disorder Current Visit: No Status: Ruled-out (3) Substance-induced sleep disorder Current Visit: Yes Status: Acute (4) Alcohol dependence with uncomplicated withdrawal Current Visit: Yes Status: Acute (5) Cocaine dependence Current Visit: Yes Status: Acute Qualifiers: Substance use status: uncomplicated Qualified Code(s): F14.20 - Cocaine dependence, uncomplicated (6) Nicotine dependence Current Visit: Yes Status: Chronic Qualifiers: Nicotine product type: cigarettes (7) Blindness of right eye Current Visit: Yes Status: Chronic (8) HTN (hypertension) Current Visit: Yes Status: Chronic Qualifiers: Hypertension type: essential hypertension Qualified Code(s): I10 - Essential (primary) hypertension (9) History of right inguinal hernia repair Current Visit: No Status: Resolved (10) Arthritis of right leg Current Visit: No Status: Chronic - Initial Treatment Plan Initial Treatment Plan: 1) Start Navane 5 mg po BID and Cogentin 0.5 mg po BID. 2) Continue inpatient detoxification
[2019-06-26] MEDS ORDERED: cloNIDine HCL 0.1 MG TABLET PO PRN (14:06)
--- NOTE | 2019-06-26 14:06 | PN ---
[facility] CIWA - CIWA Score Nausea/Vomitin-Mild Nausea/No Vomiting Muscle Tremors: 2 Anxiety: 4-Mod. Anxious/Guarded Agitation: 2 Paroxysmal Sweats: 2 Orientation: 0-Oriented Tacttile Disturbances: 0-None Auditory Disturbances: 0-None Visual Disturbances: 1-Very Mild Sensitivity Headache: 0-None Present CIWA-Ar Total Score: 12 S Progress Note (SOAP) Subjective: 59 years old male admitted on 06/25/19 for alcohol withdrawal sx management treating with librium detox regiment long history of hypertension resume amlodipine and hctz bp gradually reduced denies chest pain no blurred vision under weight begin ensure supplement Objective: 06/26/19 14:08 Vital Signs Temperature 98.3 F 06/26/19 12:57 Pulse Rate 81 06/26/19 12:57 Respiratory Rate 18 06/26/19 12:57 Blood Pressure 146/97 06/26/19 12:57 O2 Sat by Pulse Oximetry (%) Laboratory Last Values WBC 3.8 K/mm3 (4.0-10.0) L 06/26/19 07:50 RBC 4.63 M/mm3 (4.00-5.60) 06/26/19 07:50 Hgb 11.5 GM/dL (11.7-16.9) L 06/26/19 07:50 Hct 35.8 % (35.4-49) 06/26/19 07:50 MCV 77.3 fl (80-96) L 06/26/19 07:50 MCH 24.9 pg (25.7-33.7) L 06/26/19 07:50 MCHC 32.3 g/dl (32.0-35.9) 06/26/19 07:50 RDW 14.9 % (11.9-15.9) 06/26/19 07:50 Plt Count 209 K/MM3 (134-434) 06/26/19 07:50 MPV 7.7 fl (7.5-11.1) 06/26/19 07:50 Sodium 141 mmol/L (136-145) 06/26/19 07:50 Potassium 3.7 mmol/L (3.5-5.1) 06/26/19 07:50 Chloride 102 mmol/L (98-107) 06/26/19 07:50 Carbon Dioxide 32 mmol/L (21-32) 06/26/19 07:50 Anion Gap 6 MMOL/L (8-16) L 06/26/19 07:50 BUN 13.4 mg/dL (7-18) 06/26/19 07:50 Creatinine 1.0 mg/dL (0.55-1.3) 06/26/19 07:50 Est GFR (CKD-EPI)AfAm 95.06 06/26/19 07:50 Est GFR (CKD-EPI)NonAf 82.02 06/26/19 07:50 Random Glucose 127 mg/dL (74-106) H 06/26/19 07:50 Calcium 8.8 mg/dL (8.5-10.1) 06/26/19 07:50 Total Bilirubin 1.8 mg/dL (0.2-1) H 06/26/19 07:50 AST 54 U/L (15-37) H 06/26/19 07:50 ALT 40 U/L (13-61) 06/26/19 07:50 Alkaline Phosphatase 92 U/L (45-117) 06/26/19 07:50 Total Protein 6.4 g/dl (6.4-8.2) 06/26/19 07:50 Albumin 3.6 g/dl (3.4-5.0) 06/26/19 07:50 RPR Titer Nonreactive (NONREACTIVE) 06/26/19 07:50 lab noted random glucose elevation fasting glucose 06/26/19 14:09bp elevation clonidine 0.1 mg po prn Assessment: 06/26/19 14:10 alcohol withdrawal Plan: librium regiment
[2019-06-26] MEDS: THIOTHIXENE 5 MG CAPSULE PO SCH ×2 (15:58→23:01)
[2019-06-26] MEDS: BENZTROPINE MESYLATE 0.5 MG TABLET (FP) PO SCH ×2 (15:58→23:00)
[2019-06-26] MEDS: THIAMINE HCL 100 MG TABLET (FP) PO SCH (23:00)
[2019-06-26] MEDS: MELATONIN 5 MG TABLETS PO SCH (23:00)
[2019-06-27] MEDS: chlordiazePOXIDE 5 MG CAPSULE PO SCH ×3 (05:42→22:43)
[2019-06-27] MEDS: PRENATAL VITAMINS W/ FOLIC ACID TABLET (FP) PO SCH (10:18)
[2019-06-27] MEDS: HYDROCHLOROTHIAZIDE 25 MG TABLET (FP) PO SCH (10:18)
[2019-06-27] MEDS: chlordiazePOXIDE HCL 10 MG CAPSULE PO PRN (10:18)
[2019-06-27] MEDS: amLODIPine BESYLATE 10 MG TABLET (FP) PO SCH (10:18)
[2019-06-27] MEDS: THIOTHIXENE 5 MG CAPSULE PO SCH ×2 (10:19→22:43)
[2019-06-27] MEDS: NICOTINE 14 MG/24 HOURS TOPICAL PATCH TD SCH (10:22)
--- NOTE | 2019-06-27 13:37 | PN ---
S CIWA - CIWA Score Nausea/Vomitin-No Nausea/No Vomiting Muscle Tremors: 2 Anxiety: 3 Agitation: 1-Slight > Activity Paroxysmal Sweats: 1-Minimal [place] Moist Orientation: 0-Oriented Tacttile Disturbances: 0-None Auditory Disturbances: 0-None Visual Disturbances: 0-None Headache: 0-None Present CIWA-Ar Total Score: 7 BHS Progress Note (SOAP) Subjective: 59 years old male admitted on 06/25/19 for alcohol withdrawal sx management treating with librium detox regiment no bp spike today denies headache bmi 18.2 begin ensure tid Objective: 06/27/19 13:36 Vital Signs Temperature 98.4 F 06/27/19 12:37 Pulse Rate 85 06/27/19 12:37 Respiratory Rate 18 06/27/19 12:37 Blood Pressure 104/80 06/27/19 12:37 O2 Sat by Pulse Oximetry (%) Laboratory Last Values WBC 3.8 K/mm3 (4.0-10.0) L 06/26/19 07:50 RBC 4.63 M/mm3 (4.00-5.60) 06/26/19 07:50 Hgb 11.5 GM/dL (11.7-16.9) L 06/26/19 07:50 Hct 35.8 % (35.4-49) 06/26/19 07:50 MCV 77.3 fl (80-96) L 06/26/19 07:50 MCH 24.9 pg (25.7-33.7) L 06/26/19 07:50 MCHC 32.3 g/dl (32.0-35.9) 06/26/19 07:50 RDW 14.9 % (11.9-15.9) 06/26/19 07:50 Plt Count 209 K/MM3 (134-434) 06/26/19 07:50 MPV 7.7 fl (7.5-11.1) 06/26/19 07:50 Sodium 141 mmol/L (136-145) 06/26/19 07:50 Potassium 3.7 mmol/L (3.5-5.1) 06/26/19 07:50 Chloride 102 mmol/L (98-107) 06/26/19 07:50 Carbon Dioxide 32 mmol/L (21-32) 06/26/19 07:50 Anion Gap 6 MMOL/L (8-16) L 06/26/19 07:50 BUN 13.4 mg/dL (7-18) 06/26/19 07:50 Creatinine 1.0 mg/dL (0.55-1.3) 06/26/19 07:50 Est GFR (CKD-EPI)AfAm 95.06 06/26/19 07:50 Est GFR (CKD-EPI)NonAf 82.02 06/26/19 07:50 Random Glucose 127 mg/dL (74-106) H 06/26/19 07:50 Fasting Glucose 95 mg/dL (74-106) 06/27/19 07:50 Calcium 8.8 mg/dL (8.5-10.1) 06/26/19 07:50 Total Bilirubin 1.8 mg/dL (0.2-1) H 06/26/19 07:50 AST 54 U/L (15-37) H 06/26/19 07:50 ALT 40 U/L (13-61) 06/26/19 07:50 Alkaline Phosphatase 92 U/L (45-117) 06/26/19 07:50 Total Protein 6.4 g/dl (6.4-8.2) 06/26/19 07:50 Albumin 3.6 g/dl (3.4-5.0) 06/26/19 07:50 RPR Titer Nonreactive (NONREACTIVE) 06/26/19 07:50 lab noted Assessment: 06/27/19 13:36 alcohol withdrawal Plan: librium regiment
[2019-06-27] MEDS: BENZTROPINE MESYLATE 1 MG TABLET PO SCH ×2 (15:06→22:46)
[2019-06-27] MEDS: BENZTROPINE MESYLATE 0.5 MG TABLET (FP) PO SCH (16:51)
[2019-06-27] MEDS: THIAMINE HCL 100 MG TABLET (FP) PO SCH (22:43)
[2019-06-27] MEDS: MELATONIN 5 MG TABLETS PO SCH (23:38)
[2019-06-28] MEDS ORDERED: chlordiazePOXIDE HCL 10 MG CAPSULE PO PRN
[2019-06-28] MEDS: chlordiazePOXIDE HCL 10 MG CAPSULE PO SCH ×3 (06:45→21:45)
[2019-06-28] MEDS: PRENATAL VITAMINS W/ FOLIC ACID TABLET (FP) PO SCH (10:16)
[2019-06-28] MEDS: BENZTROPINE MESYLATE 1 MG TABLET PO SCH ×2 (10:16→21:45)
[2019-06-28] MEDS: HYDROCHLOROTHIAZIDE 25 MG TABLET (FP) PO SCH (10:16)
[2019-06-28] MEDS: THIOTHIXENE 5 MG CAPSULE PO SCH ×2 (10:16→21:45)
[2019-06-28] MEDS: amLODIPine BESYLATE 10 MG TABLET (FP) PO SCH (10:16)
[2019-06-28] MEDS: NICOTINE 14 MG/24 HOURS TOPICAL PATCH TD SCH (10:17)
--- NOTE | 2019-06-28 10:37 | PN ---
S CIWA - CIWA Score Nausea/Vomitin-No Nausea/No Vomiting Muscle Tremors: 1-None Visible, but [place] Anxiety: 2 Agitation: 0-Normal Activity Paroxysmal Sweats: No Perspiration Orientation: 0-Oriented Tacttile Disturbances: 0-None Auditory Disturbances: 0-None Visual Disturbances: 2-Mild Sensitivity Headache: 1-Very Mild CIWA-Ar Total Score: 6 BHS Progress Note (SOAP) Subjective: 59 years old male admitted on 06/25/19 for alcohol withdrawal sx management treating with librium detox regiment seen by psychiatrist harvey victor feeling better today less tremor discuss aftercare with staff Objective: 06/28/19 10:38 Vital Signs Temperature 98.1 F 06/28/19 08:49 Pulse Rate 106 H 06/28/19 08:49 Respiratory Rate 18 06/28/19 08:49 Blood Pressure 140/90 06/28/19 08:49 O2 Sat by Pulse Oximetry (%) Laboratory Last Values WBC 3.8 K/mm3 (4.0-10.0) L 06/26/19 07:50 RBC 4.63 M/mm3 (4.00-5.60) 06/26/19 07:50 Hgb 11.5 GM/dL (11.7-16.9) L 06/26/19 07:50 Hct 35.8 % (35.4-49) 06/26/19 07:50 MCV 77.3 fl (80-96) L 06/26/19 07:50 MCH 24.9 pg (25.7-33.7) L 06/26/19 07:50 MCHC 32.3 g/dl (32.0-35.9) 06/26/19 07:50 RDW 14.9 % (11.9-15.9) 06/26/19 07:50 Plt Count 209 K/MM3 (134-434) 06/26/19 07:50 MPV 7.7 fl (7.5-11.1) 06/26/19 07:50 Sodium 141 mmol/L (136-145) 06/26/19 07:50 Potassium 3.7 mmol/L (3.5-5.1) 06/26/19 07:50 Chloride 102 mmol/L (98-107) 06/26/19 07:50 Carbon Dioxide 32 mmol/L (21-32) 06/26/19 07:50 Anion Gap 6 MMOL/L (8-16) L 06/26/19 07:50 BUN 13.4 mg/dL (7-18) 06/26/19 07:50 Creatinine 1.0 mg/dL (0.55-1.3) 06/26/19 07:50 Est GFR (CKD-EPI)AfAm 95.06 06/26/19 07:50 Est GFR (CKD-EPI)NonAf 82.02 06/26/19 07:50 Random Glucose 127 mg/dL (74-106) H 06/26/19 07:50 Fasting Glucose 95 mg/dL (74-106) 06/27/19 07:50 Calcium 8.8 mg/dL (8.5-10.1) 06/26/19 07:50 Total Bilirubin 1.8 mg/dL (0.2-1) H 06/26/19 07:50 AST 54 U/L (15-37) H 06/26/19 07:50 ALT 40 U/L (13-61) 06/26/19 07:50 Alkaline Phosphatase 92 U/L (45-117) 06/26/19 07:50 Total Protein 6.4 g/dl (6.4-8.2) 06/26/19 07:50 Albumin 3.6 g/dl (3.4-5.0) 06/26/19 07:50 RPR Titer Nonreactive (NONREACTIVE) 06/26/19 07:50 lab noted Assessment: 06/28/19 10:39 alcohol withdrawal Plan: librium regiment
[2019-06-28] MEDS: THIAMINE HCL 100 MG TABLET (FP) PO SCH (21:45)
[2019-06-28] MEDS: MELATONIN 5 MG TABLETS PO SCH (21:45)
[2019-06-29] MEDS ORDERED: chlordiazePOXIDE HCL 10 MG CAPSULE PO ONE (05:00)
[2019-06-29 06:52] VITALS: BP 125/82; PULSE 71; TEMP 97.1
--- NOTE | 2019-06-29 12:20 | DS ---
[facility] Detox Discharge Summary Admission Date: 06/25/19 Discharge Date: 06/29/19 - History Present History: Alcohol Dependence Additional Comments: 59 years old male admitted on 06/25/19 for alcohol withdrawal sx management treated with libruim detox regiment Mr العلي has completed the libirum detox regiment and is tolerated well seen by psychiatrist harvey victor alert oriented x 3 no acute distress cardiac s1s2 regular rate rhythm ekg indicated premature ventrical complex patient is asymptomatic no chest pain no dizziness no shortness of breath respiratory clear lungs sound bilaterally on auscultation abdomen soft no rebound tenderness Pertinent Past History: time for discharge 30 minutes - Physical Exam Results Vital Signs: Vital Signs Temperature 97.1 F L 06/29/19 06:51 Pulse Rate 71 06/29/19 06:51 Respiratory Rate 18 06/29/19 06:51 Blood Pressure 125/82 06/29/19 06:51 O2 Sat by Pulse Oximetry (%) Pertinent Admission Physical Exam Findings: alcohol withdrawal Laboratory Last Values WBC 3.8 K/mm3 (4.0-10.0) L 06/26/19 07:50 RBC 4.63 M/mm3 (4.00-5.60) 06/26/19 07:50 Hgb 11.5 GM/dL (11.7-16.9) L 06/26/19 07:50 Hct 35.8 % (35.4-49) 06/26/19 07:50 MCV 77.3 fl (80-96) L 06/26/19 07:50 MCH 24.9 pg (25.7-33.7) L 06/26/19 07:50 MCHC 32.3 g/dl (32.0-35.9) 06/26/19 07:50 RDW 14.9 % (11.9-15.9) 06/26/19 07:50 Plt Count 209 K/MM3 (134-434) 06/26/19 07:50 MPV 7.7 fl (7.5-11.1) 06/26/19 07:50 Sodium 141 mmol/L (136-145) 06/26/19 07:50 Potassium 3.7 mmol/L (3.5-5.1) 06/26/19 07:50 Chloride 102 mmol/L (98-107) 06/26/19 07:50 Carbon Dioxide 32 mmol/L (21-32) 06/26/19 07:50 Anion Gap 6 MMOL/L (8-16) L 06/26/19 07:50 BUN 13.4 mg/dL (7-18) 06/26/19 07:50 Creatinine 1.0 mg/dL (0.55-1.3) 06/26/19 07:50 Est GFR (CKD-EPI)AfAm 95.06 06/26/19 07:50 Est GFR (CKD-EPI)NonAf 82.02 06/26/19 07:50 Random Glucose 127 mg/dL (74-106) H 06/26/19 07:50 Fasting Glucose 95 mg/dL (74-106) 06/27/19 07:50 Calcium 8.8 mg/dL (8.5-10.1) 06/26/19 07:50 Total Bilirubin 1.8 mg/dL (0.2-1) H 06/26/19 07:50 AST 54 U/L (15-37) H 06/26/19 07:50 ALT 40 U/L (13-61) 06/26/19 07:50 Alkaline Phosphatase 92 U/L (45-117) 06/26/19 07:50 Total Protein 6.4 g/dl (6.4-8.2) 06/26/19 07:50 Albumin 3.6 g/dl (3.4-5.0) 06/26/19 07:50 RPR Titer Nonreactive (NONREACTIVE) 06/26/19 07:50 T.pallidum Ab Interpret Cancelled 06/26/19 07:50 Vital Signs Temperature 97.1 F L 06/29/19 06:51 Pulse Rate 71 06/29/19 06:51 Respiratory Rate 18 06/29/19 06:51 Blood Pressure 125/82 06/29/19 06:51 O2 Sat by Pulse Oximetry (%) lab noted - Treatment Hospital Course: Detox Protocol Followed, Detoxed Safely, Responded well, Discharged Condition Good, Rehab Referral Accepted Patient has Accepted a Rehab Referral to: [facility] - Medication Discharge Medications: Ambulatory Orders Benztropine Mesylate [Cogentin -] 0.5 mg PO BID #60 tablet 04/07/16 Buspirone HCl [Buspar -] 10 mg PO BID #60 tablet 04/07/16 Amlodipine Besylate [Norvasc -] 10 mg PO DAILY #30 tablet 07/07/18 Hydrochlorothiazide [Hctz -] 25 mg PO DAILY #30 tablet 07/07/18 - Diagnosis (1) Alcohol dependence with uncomplicated withdrawal Status: Acute (2) Blindness of right eye Status: Chronic Qualifiers: Left eye visual impairment category: left - normal vision Qualified Code(s): H54.40 - Blindness, one eye, unspecified eye (3) HTN (hypertension) Status: Chronic Qualifiers: Hypertension type: essential hypertension Qualified Code(s): I10 - Essential (primary) hypertension (4) Nicotine dependence Status: Acute Qualifiers: Nicotine product type: cigarettes Substance use status: in withdrawal Qualified Code(s): F17.213 - Nicotine dependence, cigarettes, with withdrawal (5) Schizoaffective disorder Status: Suspected Qualifiers: Schizoaffective disorder type: other Qualified Code(s): F25.8 - Other schizoaffective disorders - AMA Did Patient Leave Against Medical Advice: No CIWA Score - CIWA Score Nausea/Vomitin-No Nausea/No Vomiting Muscle Tremors: 1-None Visible, but [place] Anxiety: 1-Mildly Anxious Agitation: 0-Normal Activity Paroxysmal Sweats: No Perspiration Orientation: 0-Oriented Tacttile Disturbances: 0-None Auditory Disturbances: 0-None Visual Disturbances: 1-Very Mild Sensitivity Headache: 0-None Present CIWA-Ar Total Score: 3
== END 2019-06-29 08:42 | disposition home or self-care (01) | DRG 897 ==
LOC: YASAS 22:37 → Y3N 23:44
PROVIDERS: ADMIT Allergy & Immunology; ATTEND Allergy & Immunology
PROC: HZ2ZZZZ Detoxification Services for Substance Abuse Treatment (ICD-10-PCS; principal; 2019-06-25)
DX: F10.230 Alcohol dependence with withdrawal, uncomplicated (principal); F14.20 Cocaine dependence, uncomplicated; F19.282 Other psychoactive substance dependence with psychoactive substance-induced sleep disorder; F17.213 Nicotine dependence, cigarettes, with withdrawal; F25.9 Schizoaffective disorder, unspecified; F20.9 Schizophrenia, unspecified; I10 Essential (primary) hypertension; M19.90 Unspecified osteoarthritis, unspecified site; H54.40 Blindness, one eye, unspecified eye; R63.8 Other symptoms and signs concerning food and fluid intake; R23.4 Changes in skin texture; R29.6 Repeated falls; Z91.14 Patient's other noncompliance with medication regimen; Z91.5 Personal history of self-harm
CPT/HCPCS: 36415; 80053; 82947; 85027; 86593; 93005; 93010

== ENCOUNTER 2019-12-29 16:54 | Inpatient (IN) | payer OTHER ==
[2019-12-29 18:07] VITALS: BMI 22.6
[2019-12-29] MEDS ORDERED: ACETAMINOPHEN 325 MG TABLET (FP) PO PRN ×2 (21:13)
[2019-12-29] MEDS ORDERED: IBUPROFEN 400 MG TABLET (FP) PO PRN (21:13)
[2019-12-29] MEDS ORDERED: ONDANSETRON *ODT* 4 MG TABLET SL PRN (21:13)
[2019-12-29] MEDS ORDERED: hydrOXYzine PAMOATE 25 MG CAPSULE (FP) PO PRN (21:13)
[2019-12-29] MEDS ORDERED: MAG HYDROX/AL HYDROX/SIMETH 30 ML UNIT-DOSE CUP PO PRN (21:13)
[2019-12-29] MEDS ORDERED: MAGNESIUM CITRATE 300 ML BOTTLE PO PRN (21:13)
[2019-12-29] MEDS ORDERED: NICOTINE POLACRILEX 2 MG GUM BUC PRN (21:13)
[2019-12-29] MEDS ORDERED: MAGNESIUM HYDROX 2400MG/30ML ORAL SUSPENSION 30 ML CUP PO PRN (21:13)
[2019-12-29] MEDS ORDERED: MENTHOL/PHENOL 1 EACH UD MM PRN (21:13)
[2019-12-29] MEDS ORDERED: chlordiazePOXIDE HCL 25 MG CAPSULE PO PRN (21:13)
[2019-12-29] MEDS ORDERED: BISMUTH SUBSALICYLATE 524 MG/30 ML UD PO PRN (21:13)
[2019-12-29] MEDS ORDERED: METHOCARBAMOL 500 MG TABLET PO PRN (21:13)
--- NOTE | 2019-12-29 21:28 | HP ---
CIWA Score Nausea/Vomitin-Mild Nausea/No Vomiting Muscle Tremors: 2 Anxiety: 4-Mod. Anxious/Guarded Agitation: 2 Paroxysmal Sweats: 2 Orientation: 0-Oriented Tacttile Disturbances: 1-Very Mild Itch/Numbness Auditory Disturbances: 0-None Visual Disturbances: 0-None Headache: 0-None Present CIWA-Ar Total Score: 12 - Admission Criteria OASAS Guidelines: Admission for Medically Managed Detox: Requires at least one of the followin. CIWA greater than 12 2. Seizures within the past 24 hours 3. Delirium tremens within the past 24 hours 4. Hallucinations within the past 24 hours 5. Acute intervention needed for co occurring medical disorder 6. Acute intervention needed for co occurring psychiatric disorder 7. Severe withdrawal that cannot be handled at a lower level of care (continued vomiting, continued diarrhea, abnormal vital signs) requiring intravenous medication and/or fluids 8. Patient presents the following: Acute intervention needed for co-occurring med or psych disorder Admission Criteria Met: Admission criteria met Admitting History and Physical - Admission Chief Complaint: I want detox [facility]. History of Present Illness: Mr. العلي is a 59 y/o male with history of hypertension, right inguinal hernia repair 2018, right eye blindness, alcohol, and cocaine use disorder, presented to [facility] for alcohol detox. Was last here 09/26 to 09/30 for alcohol detox. Started drinking alcohol since age 20, last drink was this morning. Currently drinking 2 nips and 2-6 packs of beer daily.Also endorses using 2-3 grams of cocaine daily, last use was yesterday. Complaints tremors, anxiety and sweats. History Source: Patient Limitations to Obtaining History: No Limitations - Past Medical History Cardiovascular: Yes: HTN Psych: Yes: Depression, Schizophrenia Musculoskeletal: Yes: Osteoarthritis (right knee.) - Past Surgical History Additional Past Surgical History: Right inguinal hernia repair 2018 - Smoking History Smoking history: Current every day smoker Have you smoked in the past 12 months: Yes Aproximately how many cigarettes per day: 10 - Alcohol/Substance Use Hx Alcohol Use: Yes Number of Drinks Daily: 2 History of Substance Use: reports: Cocaine Date of Last Use: 12/29/19 - Social History Usual Living Arrangement: Yes: Alone Do you think of yourself as: Straight/Heterosexual ADL: Independent History of Recent Travel: No Admission ROS [facility] - [facility] Allergies/Adverse Reactions: Allergies Allergy/AdvReac Type Severity Reaction Status Date / Time No Known Allergies Allergy Verified 09/30/19 13:02 History of Present Illness: Mr. العلي is a 59 y/o male with history of hypertension, right inguinal hernia repair 2018, right eye blindness, alcohol, and cocaine use disorder, presented to [facility] for alcohol detox. Was last here 09/26 to 09/30 for alcohol detox. Started drinking alcohol since age 20, last drink was this morning. Currently drinking 2 nips and 2-6 packs of beer daily.Also endorses using 2-3 grams of cocaine daily, last use was yesterday. Complaints tremors, anxiety and sweats. 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.) Respiratory: reports: No Symptoms reported Cardiac: reports: No Symptoms Reported GI: reports: No Symptoms Reported : reports: No Symptoms Reported Musculoskeletal: reports: No Symptoms Reported, Joint Pain (right knee arthrtis.) Integumentary: reports: No Symptoms Reported Neuro: reports: Tremors Hematology: reports: No Symptoms Reported Psychiatric: reports: No Sypmtoms Reported, Anxious Other Systems: Reviewed and Negative Patient History - Patient Medical History Hx Asthma: No Hx Chronic Obstructive Pulmonary Disease (COPD): No Hx Cancer: No Hx Cardiac Disorders: No Hx Congestive Heart Failure: No Hx Hypertension: Yes (NON COMPLIANT WITH MEDS) Hx Hypercholesterolemia: No Hx Pacemaker: No HX Cerebrovascular Accident: No Hx Seizures: No Hx Dementia: No Hx Diabetes: No Hx Gastrointestinal Disorders: No Hx Liver Disease: No Hx Genitourinary Disorders: No Hx Sexually Transmitted Disorders: No Hx Renal Disease (ESRD): No Hx Thyroid Disease: No Hx Human Immunodeficiency Virus (HIV): No (last negative in 2008) Hx Hepatitis C: No Hx Depression: Yes Hx Suicide Attempt: Yes (20 years ago overdose) Hx Bipolar Disorder: No Hx Schizophrenia: Yes (SCHIZOAFFECTIVE) - Patient Surgical History Past Surgical History: Yes Hx Neurologic Surgery: No Hx Cataract Extraction: No Hx Cardiac Surgery: No Hx Lung Surgery: No Hx Breast Surgery: No Hx Breast Biopsy: No Hx Abdominal Surgery: Yes (right inguinal hernia in 2018) Hx Appendectomy: No Hx Cholecystectomy: No Hx Genitourinary Surgery: No Hx Section: No Hx Orthopedic Surgery: No Anesthesia Reaction: No - PPD History Date: 06/28/19 Results: 0 mm - Reproductive History Patient is a Female of Child Bearing Age (11 -55 yrs old): No Patient : No - Smoking Cessation Smoking history: Current every day smoker Have you smoked in the past 12 months: Yes Aproximately how many cigarettes per day: 10 Cigars Per Day: 0 Hx Chewing Tobacco Use: No Initiated information on smoking cessation: Yes 'Breaking Loose' booklet given: 12/29/19 - Substances abused Alcohol Substance route: Oral Frequency: Daily Amount used: 2 to 3 packs /beer Age of first use: 19 Date of last use: 12/29/19 Cocaine Substance route: Inhalation Frequency: Daily Amount used: 2 to 3 bags Age of first use: 25 Date of last use: 12/29/19 Admission Physical Exam S - Vital Signs Vital Signs: Vital Signs - 24 hr 12/29/19 12/29/19 12/29/19 18:06 19:32 20:49 Temperature 97.5 F L 97.5 F L 97.5 F L Pulse Rate 87 87 87 Respiratory 19 19 19 Rate Blood Pressure 114/72 114/72 114/72 - Physical General Appearance: Yes: Tremorous, Sweating, Anxious HEENTM: Yes: Other (Right eye blindness.) Respiratory: Yes: Within Normal Limits, Normal Breath Sounds, No Accessory Muscle Use Neck: Yes: Within Normal Limits Cardiology: Yes: Regular Rhythm, Regular Rate, S1, S2 Abdominal: Yes: Within Normal Limits Genitourinary: Yes: Within Normal Limits Back: Yes: Within Normal Limits Musculoskeletal: Yes: Joint Stiffness (right knee arthritis.) Neurological: Yes: Within Normal Limits, Fully Oriented Integumentary: Yes: Within Normal Limits Lymphatic: Yes: Within Normal Limits - Diagnostic (1) Alcohol dependence with uncomplicated withdrawal Current Visit: No Status: Acute (2) Right groin hernia Current Visit: No Status: Resolved (3) Arthritis of right leg Current Visit: No Status: Chronic (4) Cocaine dependence Current Visit: No Status: Chronic Qualifiers: Substance use status: uncomplicated Qualified Code(s): F14.20 - Cocaine dependence, uncomplicated (5) HTN (hypertension) Current Visit: No Status: Chronic Qualifiers: Hypertension type: essential hypertension Qualified Code(s): I10 - Essential (primary) hypertension (6) Nicotine dependence Current Visit: No Status: Chronic Qualifiers: Nicotine product type: cigarettes Substance use status: in withdrawal Qualified Code(s): F17.213 - Nicotine dependence, cigarettes, with withdrawal Cleared for Admission S - Detox or Rehab [facility] Level of Care: Medically Managed Detox Regimen/Protocol: Librium Claeared for Rehab Admission: No Screened but not Admitted - Documentation of Visit Screened but not Admitted: No Breathalyzer - Breathalyzer Breathalyzer: 0.099 Urine Drug Screen - Test Device Lot number: [id number] Expiration date: 11/21/21 - Control Is test valid?: Yes - Results Drug screen NEGATIVE: No Urine drug screen results: TATYANA-Cocaine Inpatient Rehab Admission - Rehab Decision to Admit Inpatient rehab admission?: No
[2019-12-29] MEDS: chlordiazePOXIDE HCL 25 MG CAPSULE PO SCH (22:03)
[2019-12-29] MEDS: MELATONIN 5 MG TABLETS PO SCH (22:03)
[2019-12-29] MEDS: THIAMINE HCL 100 MG TABLET (FP) PO SCH (22:03)
[2019-12-30] MEDS: chlordiazePOXIDE HCL 25 MG CAPSULE PO SCH ×4 (06:20→22:55)
--- NOTE | 2019-12-30 09:02 | EKG ---
Test Reason : Blood Pressure : / mmHG Vent. Rate : 068 BPM Atrial Rate : 068 BPM P-R Int : 198 ms QRS Dur : 102 ms QT Int : 422 ms P-R-T Axes : 072 059 067 degrees QTc Int : 448 ms NORMAL SINUS RHYTHM WITH SINUS ARRHYTHMIA MINIMAL VOLTAGE CRITERIA FOR LVH, MAY BE NORMAL VARIANT WHEN COMPARED WITH ECG OF 25-JUN-2019 23:53, PREMATURE ATRIAL COMPLEXES ARE NO LONGER PRESENT CRITERIA FOR SEPTAL INFARCT ARE NO LONGER PRESENT Confirmed by EDILBERTO HICKEY MD ([id number]) on 12/30/2019 9:01:54 AM Referred By: Gustabo Meehan Confirmed By:EDILBERTO HICKEY MD
[2019-12-30] MEDS: NICOTINE 7 MG/24 HOURS TOPICAL PATCH TD SCH (10:22)
[2019-12-30] MEDS: PRENATAL VITAMINS W/ FOLIC ACID TABLET (FP) PO SCH (10:22)
[2019-12-30] MEDS: amLODIPine BESYLATE 10 MG TABLET (FP) PO SCH (10:22)
--- NOTE | 2019-12-30 10:29 | PN ---
S CIWA - CIWA Score Nausea/Vomitin-No Nausea/No Vomiting Muscle Tremors: 3 Anxiety: 2 Agitation: 2 Paroxysmal Sweats: 2 Orientation: 0-Oriented Tacttile Disturbances: 0-None Auditory Disturbances: 0-None Visual Disturbances: 0-None Headache: 0-None Present CIWA-Ar Total Score: 9 S Progress Note (SOAP) Subjective: groggy sweats tired interrupted sleep chills Objective: 12/30/19 10:31 Vital Signs Temperature 98.2 F 12/30/19 05:34 Pulse Rate 65 12/30/19 05:34 Respiratory Rate 16 12/30/19 05:34 Blood Pressure 137/86 12/30/19 05:34 O2 Sat by Pulse Oximetry (%) 99 12/30/19 05:34 labs pending aaox3 ambulating no acute distress Assessment: 12/30/19 10:31 withdrawals Plan: continue detox pending labs increase fluids
--- NOTE | 2019-12-30 14:43 | CONSULT ---
[facility] Psychiatric Consult - Data Date of interview: 12/30/19 Admission source: [facility] Identifying data: Patient is a 59 year old single black male, without children, unemployed, homeless, and is supported with disability benefits. This is one of multiple admissions for patient. Patient admitted to for alcohol and cocaine dependence. Substance Abuse History: Smoking Cessation. Smoking history: Current every day smoker. Have you smoked in the past 12 months: Yes. Aproximately how many cigarettes per day: 10. Cigars Per Day: 0. Hx Chewing Tobacco Use: No. Initiated information on smoking cessation: Yes. 'Breaking Loose' booklet given: 12/29/19. - Substances abused. Alcohol. Substance route: Oral. Frequency: Daily. Amount used: 2 to 3 packs /beer. Age of first use: 19. Date of last use: 12/29/19. Cocaine. Substance route: Inhalation. Frequency: Daily. Amount used: 2 to 3 bags. Age of first use: 25. Date of last use: 12/28 Medical History: HTN, Osteoarthritis (right knee), right inguinal hernia repair 2018 Psychiatric History: Interview conducted beside. Mr. العلي reports a history of multiple psychiatric hospitalizations ([facility], [facility], facilities in the State [facility]) most recently at [facility] last year due to mood dyregulation and auditory hallucinations. Diagnosis of Schizophrenia. Mr. العلي states that he is currently provided with outpatient psychiatric care on [address] [place] [address] in the [place] and is prescribed risperdal although is unsure of doses ( will contact [facility] pharmacy). History of two suicide attempt via hanging and overdose. At present patient denies auditory/ visual hallucination, suicidal/ homicidal ideation. Physical/Sexual Abuse/Trauma History: denies. Mental Status Exam - Mental Status Exam Alert and Oriented to: Time, Place, Person Cognitive Function: Good Patient Appearance: Disheveled Mood: Withdrawn Affect: Mood Congruent Patient Behavior: Fatigued Speech Pattern: Garbled (Patient appears to have a speech disability) Voice Loudness: Normal Thought Process: Goal Oriented Hallucinations: Denies (Denies but states he hears voices often. ) Suicidal Ideation: Denies Homicidal Ideation: Denies Insight/Judgement: Poor Sleep: Fair Appetite: Fair Muscle strength/Tone: Normal Gait/Station: Other (Gait not observed.) Psychiatric Findings - Problem List ([place] 1, 2,3) (1) Alcohol dependence Current Visit: Yes Status: Acute Qualifiers: Substance use status: uncomplicated Qualified Code(s): F10.20 - Alcohol dependence, uncomplicated (2) Cocaine dependence Current Visit: Yes Status: Chronic Qualifiers: Substance use status: uncomplicated Qualified Code(s): F14.20 - Cocaine dependence, uncomplicated (3) Schizoaffective disorder Current Visit: Yes Status: Chronic Qualifiers: Schizoaffective disorder type: other Qualified Code(s): F25.8 - Other schizoaffective disorders - Initial Treatment Plan Initial Treatment Plan: Psychoeducation provided. Detoxification in progress. [facility] pharmacy contacted at [phone]. As per pharmacy staff patient received a 30 day prescription of the following medication on 12/01/[address] Bin Armstrong: Risperdal 1mg BID + Cogentin 0.5mg BID + Buspar 15mg BID. Will order above medications. Benefits and side effects discussed. Vebral consent given.
[2019-12-30] MEDS: MELATONIN 5 MG TABLETS PO SCH (22:55)
[2019-12-30] MEDS: risperiDONE 1 MG TABLET PO SCH (22:55)
[2019-12-30] MEDS: THIAMINE HCL 100 MG TABLET (FP) PO SCH (22:55)
[2019-12-30] MEDS: BENZTROPINE MESYLATE 0.5 MG TABLET (FP) PO SCH (22:55)
[2019-12-31] MEDS: chlordiazePOXIDE HCL 25 MG CAPSULE PO SCH ×4 (05:46→22:33)
[2019-12-31] MEDS: risperiDONE 1 MG TABLET PO SCH ×2 (11:20→22:33)
[2019-12-31] MEDS: NICOTINE 7 MG/24 HOURS TOPICAL PATCH TD SCH (11:20)
[2019-12-31] MEDS: PRENATAL VITAMINS W/ FOLIC ACID TABLET (FP) PO SCH (11:20)
[2019-12-31] MEDS: BENZTROPINE MESYLATE 0.5 MG TABLET (FP) PO SCH ×2 (11:20→22:33)
[2019-12-31] MEDS: amLODIPine BESYLATE 10 MG TABLET (FP) PO SCH (11:20)
--- NOTE | 2019-12-31 17:51 | PN ---
S CIWA - CIWA Score Nausea/Vomitin-No Nausea/No Vomiting Muscle Tremors: 2 Anxiety: 2 Agitation: 0-Normal Activity Paroxysmal Sweats: 3 Orientation: 0-Oriented Tacttile Disturbances: 1-Very Mild Itch/Numbness Auditory Disturbances: 1-Very Mild Visual Disturbances: 0-None Headache: 0-None Present CIWA-Ar Total Score: 9 S Progress Note (SOAP) Subjective: Fatigue, Sweating, Chills, Interrupted Sleep. Objective: Patient A & O X 3; In No Acute Distress. 12/31/19 17:50 Vital Signs Temperature 97.1 F L 12/31/19 12:37 Pulse Rate 69 12/31/19 12:37 Respiratory Rate 18 12/31/19 12:37 Blood Pressure 128/59 L 12/31/19 12:37 O2 Sat by Pulse Oximetry (%) 100 12/31/19 12:37 Laboratory Tests 12/30/19 08:10 Syphilis Serology Non-reactive Admission lab Results noted. Assessment: 12/31/19 17:50 WITHDRAWAL SYMPTOMS. Plan: Continue Detox. Continue to Monitor Blood pressure (fluctuating over course of last several readings).
[2019-12-31] MEDS: THIAMINE HCL 100 MG TABLET (FP) PO SCH (22:33)
[2019-12-31] MEDS: MELATONIN 5 MG TABLETS PO SCH (22:33)
[2020-01-01] MEDS ORDERED: chlordiazePOXIDE HCL 10 MG CAPSULE PO PRN
[2020-01-01] MEDS: chlordiazePOXIDE HCL 10 MG CAPSULE PO SCH ×4 (06:16→22:57)
[2020-01-01] MEDS: NICOTINE 7 MG/24 HOURS TOPICAL PATCH TD SCH (10:37)
[2020-01-01] MEDS: risperiDONE 1 MG TABLET PO SCH ×2 (10:37→22:57)
[2020-01-01] MEDS: amLODIPine BESYLATE 10 MG TABLET (FP) PO SCH (10:37)
[2020-01-01] MEDS: BENZTROPINE MESYLATE 0.5 MG TABLET (FP) PO SCH ×2 (10:37→22:57)
[2020-01-01] MEDS: PRENATAL VITAMINS W/ FOLIC ACID TABLET (FP) PO SCH (10:37)
--- NOTE | 2020-01-01 18:48 | PN ---
S CIWA - CIWA Score Nausea/Vomitin-No Nausea/No Vomiting Muscle Tremors: 2 Anxiety: 1-Mildly Anxious Agitation: 1-Slight > Activity Paroxysmal Sweats: 2 Orientation: 0-Oriented Tacttile Disturbances: 0-None Auditory Disturbances: 0-None Visual Disturbances: 0-None Headache: 0-None Present CIWA-Ar Total Score: 6 BHS Progress Note (SOAP) Subjective: A little depressed, interrupted sleep Objective: 01/01/20 18:47 Last Vital Signs Temp Pulse Resp BP Pulse Ox 97.3 F L 72 20 116/74 98 01/01/20 12:57 01/01/20 12:57 01/01/20 12:57 01/01/20 12:57 01/01/20 12:57 Laboratory Tests 12/30/19 08:10 Syphilis Serology Non-reactive Assessment: 01/01/20 18:48 Withdrawal sxs Plan: Continue detox Encourage PO water intake
[2020-01-01] MEDS: THIAMINE HCL 100 MG TABLET (FP) PO SCH (22:56)
[2020-01-01] MEDS: MELATONIN 5 MG TABLETS PO SCH (22:57)
[2020-01-02] MEDS: chlordiazePOXIDE HCL 10 MG CAPSULE PO SCH ×2 (05:41→18:07)
[2020-01-02] MEDS: NICOTINE 7 MG/24 HOURS TOPICAL PATCH TD SCH (10:42)
[2020-01-02] MEDS: amLODIPine BESYLATE 10 MG TABLET (FP) PO SCH (10:45)
[2020-01-02] MEDS: BENZTROPINE MESYLATE 1 MG TABLET PO SCH ×2 (10:46→22:29)
[2020-01-02] MEDS: PRENATAL VITAMINS W/ FOLIC ACID TABLET (FP) PO SCH (10:47)
--- NOTE | 2020-01-02 11:08 | PN ---
[facility] CIWA - CIWA Score Nausea/Vomitin-No Nausea/No Vomiting Muscle Tremors: 1-None Visible, but [place] Anxiety: 1-Mildly Anxious Agitation: 1-Slight > Activity Paroxysmal Sweats: No Perspiration Orientation: 0-Oriented Tacttile Disturbances: 0-None Auditory Disturbances: 0-None Visual Disturbances: 0-None Headache: 0-None Present CIWA-Ar Total Score: 3 BHS Progress Note (SOAP) Subjective: feeling better little anxiety and restless Objective: 01/02/20 11:07 Vital Signs Temperature 97.3 F L 01/02/20 05:33 Pulse Rate 70 01/02/20 05:33 Respiratory Rate 20 01/02/20 05:33 Blood Pressure 146/98 01/02/20 05:33 O2 Sat by Pulse Oximetry (%) 99 01/02/20 05:33 aaox3 ambulating no acute distress Assessment: 01/02/20 11:07 mild withdrawals Plan: continue detox d/c in am
[2020-01-02] MEDS: risperiDONE 1 MG TABLET PO SCH ×2 (12:15→22:30)
[2020-01-02] MEDS: THIAMINE HCL 100 MG TABLET (FP) PO SCH (22:30)
[2020-01-02] MEDS: MELATONIN 5 MG TABLETS PO SCH (22:31)
[2020-01-03] MEDS ORDERED: chlordiazePOXIDE HCL 10 MG CAPSULE PO ONE (05:00)
--- NOTE | 2020-01-03 08:44 | DS ---
[facility] Detox Discharge Summary Admission Date: 12/29/19 Discharge Date: 01/03/20 - History Present History: Alcohol Dependence, Cocaine Dependence, Pcp Dependence - Physical Exam Results Vital Signs: Vital Signs Temperature 97.1 F L 01/03/20 06:19 Pulse Rate 100 H 01/03/20 06:19 Respiratory Rate 18 01/03/20 06:19 Blood Pressure 147/98 01/03/20 06:19 O2 Sat by Pulse Oximetry (%) 96 01/03/20 06:19 Pertinent Admission Physical Exam Findings: Vital Signs Temperature 97.1 F L 01/03/20 06:19 Pulse Rate 100 H 01/03/20 06:19 Respiratory Rate 18 01/03/20 06:19 Blood Pressure 147/98 01/03/20 06:19 O2 Sat by Pulse Oximetry (%) 96 01/03/20 06:19 Laboratory Tests 12/30/19 12/31/19 08:10 22:00 Syphilis Serology Non-reactive COVID-19 (TATE) Not detected rest of labs pending aaox3 ambulating no acute distress lungs CTA - Treatment Hospital Course: Detox Protocol Followed, Detoxed Safely, Responded well, Discharged Condition Good, Rehab Referral Accepted - Medication Discharge Medications: Ambulatory Orders Benztropine Mesylate [Cogentin -] 0.5 mg PO BID #60 tablet 04/07/16 Buspirone HCl [Buspar -] 10 mg PO BID #60 tablet 04/07/16 Amlodipine Besylate [Norvasc -] 10 mg PO DAILY #30 tablet 09/30/19 Hydrochlorothiazide [Hctz -] 25 mg PO DAILY #30 tablet 09/30/19 - Diagnosis (1) Cocaine dependence Current Visit: Yes Status: Chronic Qualifiers: Substance use status: uncomplicated Qualified Code(s): F14.20 - Cocaine dependence, uncomplicated (2) Schizoaffective disorder Current Visit: Yes Status: Chronic Qualifiers: Schizoaffective disorder type: other Qualified Code(s): F25.8 - Other schizoaffective disorders (3) Alcohol dependence with uncomplicated withdrawal Current Visit: Yes Status: Chronic (4) Hernia Current Visit: No Status: Acute (5) History of drug overdose Current Visit: No Status: Acute (6) Risk for falls Current Visit: No Status: Acute (7) Skin turgor poor Current Visit: No Status: Acute (8) Substance induced mood disorder Current Visit: No Status: Acute (9) Substance-induced sleep disorder Current Visit: No Status: Acute (10) Syncope Current Visit: No Status: Acute (11) Arthritis of right leg Current Visit: No Status: Chronic (12) Blindness of right eye Current Visit: Yes Status: Chronic Qualifiers: Left eye visual impairment category: left - normal vision Qualified Code(s): H54.40 - Blindness, one eye, unspecified eye (13) HTN (hypertension) Current Visit: Yes Status: Chronic Qualifiers: Hypertension type: essential hypertension Qualified Code(s): I10 - Essential (primary) hypertension (14) Nicotine dependence Current Visit: Yes Status: Chronic Qualifiers: Nicotine product type: cigarettes Substance use status: in withdrawal Qualified Code(s): F17.213 - Nicotine dependence, cigarettes, with withdrawal (15) PCP dependence Current Visit: Yes Status: Chronic (16) Schizophrenia Current Visit: Yes Status: Chronic (17) History of right inguinal hernia repair Current Visit: No Status: Resolved (18) Right groin hernia Current Visit: No Status: Resolved - AMA Did Patient Leave Against Medical Advice: No
[2020-01-03 09:53] VITALS: BP 150/107; PULSE 87; TEMP 96.9
[2020-01-03] MEDS: amLODIPine BESYLATE 10 MG TABLET (FP) PO SCH (10:13)
[2020-01-03] MEDS: NICOTINE 7 MG/24 HOURS TOPICAL PATCH TD SCH (10:13)
[2020-01-03] MEDS: BENZTROPINE MESYLATE 1 MG TABLET PO SCH (10:14)
[2020-01-03] MEDS: risperiDONE 1 MG TABLET PO SCH (10:14)
[2020-01-03] MEDS: PRENATAL VITAMINS W/ FOLIC ACID TABLET (FP) PO SCH (10:16)
== END 2020-01-03 12:06 | disposition other institution (70) | DRG 897 ==
LOC: YASAS 16:54 → Y6N 20:49
PROVIDERS: ADMIT Allergy & Immunology; ATTEND Allergy & Immunology
PROC: HZ2ZZZZ Detoxification Services for Substance Abuse Treatment (ICD-10-PCS; principal; 2019-12-29)
DX: F10.230 Alcohol dependence with withdrawal, uncomplicated (principal); F14.20 Cocaine dependence, uncomplicated; F19.282 Other psychoactive substance dependence with psychoactive substance-induced sleep disorder; F17.210 Nicotine dependence, cigarettes, uncomplicated; F25.9 Schizoaffective disorder, unspecified; F19.24 Other psychoactive substance dependence with psychoactive substance-induced mood disorder; I10 Essential (primary) hypertension; H54.61 Unqualified visual loss, right eye, normal vision left eye; M17.11 Unilateral primary osteoarthritis, right knee; R23.8 Other skin changes; Z91.81 History of falling; Z98.890 Other specified postprocedural states; Z91.5 Personal history of self-harm; Z56.0 Unemployment, unspecified; Z59.0 Homelessness
CPT/HCPCS: 36415; 86780; 93005; 93010; J2794; U0003

== ENCOUNTER 2020-01-03 11:51 | Inpatient (IN) | payer OTHER ==
--- NOTE | 2020-01-03 14:18 | HP ---
[facility] Rehab Assess/Revision - Admission History Admitted to Rehab from: Y [address] [place] [address] - Vital signs Vital Signs: Vital Signs Period Temp Pulse Resp BP Sys/Irizarry Pulse Ox Last 24 Hr 97.8 F 87 16 136/81 98 - Findings Detox History & Physical reviewed: Yes Concur with findings: Yes Inpatient Rehab Admission - Rehab Decision to Admit Inpatient rehab admission?: Yes - Initial Determination Are CD services needed?: Yes Free of communicable disease: Yes Not in need of hospitalization: Yes - Rehab Admission Criteria Previous failed treatment: Yes Poor recovery environment: Yes Comorbidities: Yes Lacks judgement: Yes Patient is meeting Inpatient Rehab admission criteria:: Yes
[2020-01-03] MEDS ORDERED: MAG HYDROX/AL HYDROX/SIMETH 30 ML UNIT-DOSE CUP PO PRN (14:20)
[2020-01-03] MEDS ORDERED: NICOTINE POLACRILEX 2 MG GUM BUC PRN (14:20)
[2020-01-03] MEDS ORDERED: P-EPHED 60MG/TRIPROLIDI 2.5MG TABLET PO PRN (14:20)
[2020-01-03] MEDS ORDERED: MENTHOL/PHENOL 1 EACH UD MM PRN (14:20)
[2020-01-03] MEDS ORDERED: IBUPROFEN 400 MG TABLET (FP) PO PRN (14:20)
[2020-01-03] MEDS ORDERED: hydrOXYzine PAMOATE 25 MG CAPSULE (FP) PO PRN (14:20)
[2020-01-03] MEDS ORDERED: MAGNESIUM HYDROX 2400MG/30ML ORAL SUSPENSION 30 ML CUP PO PRN (14:20)
[2020-01-03] MEDS ORDERED: MAGNESIUM CITRATE 300 ML BOTTLE PO PRN (14:20)
[2020-01-03] MEDS ORDERED: ACETAMINOPHEN 325 MG TABLET (FP) PO PRN (14:20)
[2020-01-03] MEDS ORDERED: guaiFENesin 200 MG/10 ML 10 ML UNIT-DOSE CUPS PO PRN (14:20)
[2020-01-03] MEDS ORDERED: LOPERAMIDE HCL 2 MG CAPSULE PO PRN (14:20)
[2020-01-03] MEDS: risperiDONE 1 MG TABLET PO SCH (21:08)
[2020-01-03] MEDS: BENZTROPINE MESYLATE 1 MG TABLET PO SCH (21:09)
[2020-01-03] MEDS ORDERED: THIAMINE HCL 100 MG TABLET (FP) PO SCH (22:00)
[2020-01-03] MEDS ORDERED: MELATONIN 5 MG TABLETS PO SCH (22:00)
[2020-01-04 07:10] VITALS: TEMP 97.3
[2020-01-04] MEDS ORDERED: amLODIPine BESYLATE 10 MG TABLET (FP) PO SCH (10:00)
[2020-01-04] MEDS ORDERED: NICOTINE 21 MG/24 HOURS TOPICAL PATCH TD SCH (10:00)
[2020-01-04] MEDS ORDERED: PRENATAL VITAMINS W/ FOLIC ACID TABLET (FP) PO SCH (10:00)
[2020-01-04] MEDS: BENZTROPINE MESYLATE 1 MG TABLET PO SCH (11:06)
[2020-01-04] MEDS: risperiDONE 1 MG TABLET PO SCH (11:07)
[2020-01-04 13:21] VITALS: BP 133/93; PULSE 75
--- NOTE | 2020-01-04 13:26 | DS ---
[facility] Rehab Discharge Summary - [facility] Rehab Discharge Summary Admission Date: 01/03/20 Discharge Date: 01/04/20 - History Present History: Alcohol dependence Pertinent Past History: Mr. العلي is a 59 y/o male with history of hypertension, right inguinal hernia repair 2018, right eye blindness, alcohol, and cocaine use disorder. Was last here 09/26 to 09/30 for alcohol detox. Started drinking alcohol since age 20. Currently drinking 2 nips and 2-6 packs of beer daily.Also endorses using 2-3 grams of cocaine daily, last use was prior to admission. Complaints tremors, anxiety and sweats. - Discharge Physical Exam Vital Signs: Vital Signs Temperature 97.3 F L 01/04/20 08:12 Pulse Rate 75 01/04/20 08:12 Respiratory Rate 18 01/04/20 08:12 Blood Pressure 133/93 01/04/20 08:12 O2 Sat by Pulse Oximetry (%) 98 01/04/20 05:53 Pertinent Admission Physical Exam Findings: General: No apparent distress HEENTM: Right eye blindness, normocephalic Respiratory: No Accessory Muscle Use Neck: Supple Abdominal: +BS Musculoskeletal: Joint Stiffness, full weight bearing, steady gait Neurological: No cognitive deficits, - Treatment Discharge Condition: Discharge condition good (medically stable for discharge.), Outpatient referral accepted (Patient will go to the [email or web address] - Medication Discharge Medications: Ambulatory Orders Benztropine Mesylate [Cogentin -] 0.5 mg PO BID #60 tablet 04/07/16 Buspirone HCl [Buspar -] 15 mg PO BID 01/03/20 Risperidone [Risperdal] 1 mg PO BID 01/03/20 Amlodipine Besylate [Norvasc -] 10 mg PO DAILY #30 tablet 01/04/20 - Medication-Assisted Treatment (MAT) Medication-Assisted Treatment (MAT): No - Discharge Instructions Diet, activity, other medical instructions: Diet: as tolerated Activity: as tolerated Other medical instructions: Please follow up with aftercare referral. - Diagnosis (1) Alcohol dependence with uncomplicated withdrawal Current Visit: No Status: Chronic - Follow-up Referral Minutes to complete discharge: 20 - AMA Did Patient Leave Against Medical Advice: No
== END 2020-01-04 13:25 | disposition home or self-care (01) | DRG 895 ==
LOC: YASAS 11:51 → Y3W 11:53 → Y5N 01-04 13:17 → Y3W 01-04 13:20
PROVIDERS: ADMIT Allergy & Immunology; ATTEND Allergy & Immunology
PROC: HZ42ZZZ Group Counseling for Substance Abuse Treatment, Cognitive-Behavioral (ICD-10-PCS; principal; 2020-01-03)
DX: F10.20 Alcohol dependence, uncomplicated (principal); F14.20 Cocaine dependence, uncomplicated; H54.61 Unqualified visual loss, right eye, normal vision left eye; Z98.890 Other specified postprocedural states
CPT/HCPCS: J2794